=== PATIENT | female | born 1965 | race Caucasian/White ===

== ENCOUNTER 2016-09-07 16:30 | Emergency (ER) | payer MEDICARE, MEDICAID ==
[2016-09-07] MEDS ORDERED: Albuterol 2.5 MG/3 ML NEB.SOL* (0.083%) INH ONE (16:58)
[2016-09-07] MEDS ORDERED: Ipratropium 0.5MG/2.5ML NEB* 0.5 MG/2.5 ML NEB.SOLN INH ONE (16:58)
[2016-09-07] MEDS ORDERED: predniSONE TAB* 20 MG PO ONE (16:59)
--- NOTE | 2016-09-07 17:14 | RAD ---
INDICATION: Obstructive lung disease. Tobacco use. Three-day shortness of breath. Upper chest pain. COMPARISON: May 13, 2013 TECHNIQUE: Dual energy PA and routine lateral views of the chest were obtained. REPORT: Elevated lung volumes and both diffuse mild prominence of the interstitial markings and patchy rarefaction of the mid to upper lung zone interstitial markings. No focal pulmonary lesion, compelling alveolar consolidation, pleural effusion, pneumothorax. The heart, pulmonary vasculature, and mediastinal contours are unremarkable. Gallbladder fossa level surgical clips. No thoracic fractures evident. IMPRESSION: Stigmata of obstructive lung disease. No acute pulmonary or cardiac process evident.
[2016-09-07 18:11] VITALS: BP 128/88
--- NOTE | 2016-09-07 18:23 | UC ---
Respiratory Complaint HPI - HPI Summary HPI Summary: COUGH X 5 DAY , CHEST CONGESTION, NO FEVER, NO CHILLS, COUGHING GO WORSE ABOUT 3 HRS AGO AND STARTED TO FEEL VERY SOB , WAS HAVING A HARD TIME CATCHING HER BREATH AND WAS HYPERVENTILATING - History of Current Complaint Chief Complaint: UCRespiratory Stated Complaint: DIFFICULTY BREATHING Time Seen by Provider: 09/07/16 16:32 Hx Obtained From: Patient Hx Last Menstrual Period: 1998 Onset/Duration: Gradual Onset, Lasting Days - 5, Still Present, Worse Since - 3 HRS AGO Severity Initially: Moderate Severity Currently: Severe Pain Intensity: 0 Pain Scale Used: 0-10 Numeric Character: Cough: Nonproductive Aggravating Factors: Exertion, Deep Breaths Alleviating Factors: Bronchodilator Associated Signs And Symptoms: Positive: Dyspnea, Wheezing, URI. Negative: Fever, Chills, Pleuritic Chest Pain, Dizziness, Calf Pain, Calf Swelling - Allergies/Home Medications Allergies/Adverse Reactions: Allergies Allergy/AdvReac Type Severity Reaction Status Date / Time No Known Allergies Allergy Verified 09/07/16 16:35 Home Medications: Home Medications Esomeprazole Magnesium [Nexium] 40 mg PO DAILY 09/07/16 [History Confirmed 09/07] Fenofibrate 120 mg PO DAILY 09/07/16 [History Confirmed 09/07/16] Folic Acid TAB* [Folvite TAB*] 1 mg PO DAILY 09/07/16 [History Confirmed ] LevoCETirizine TAB (NF) [Xyzal TAB (NF)] 5 mg PO DAILY 09/07/16 [History Confirmed 09/07/16] Metoprolol Tartrate TAB* [Lopressor TAB*] 25 mg PO DAILY 09/07/16 [History Confirmed 09/07/16] Mometasone NASAL (NF) [Nasonex (NF)] 1 spray .SEE ORDER DAILY 09/07/16 [History Confirmed 09/07/16] Oxybutynin XL TAB* [Ditropan Xl TAB*] 10 mg PO DAILY 09/07/16 [History Confirmed 09/07/16] Ramipril CAP* [Altace CAP*] 2.5 mg PO DAILY 09/07/16 [History Confirmed 09/07/16 ] Ropinirole Hydrochloride [Ropinirole HCl] 0.25 mg PO BEDTIME 09/07/16 [History Confirmed 09/07/16] SUMAtriptan TAB* [Imitrex TAB*] 25 mg PO SEE INSTRUCTIONS 09/07/16 [History Confirmed 09/07/16] Simvastatin [Zocor 40 MG (NF)] 40 mg PO QPM 09/07/16 [History Confirmed 09/07/16 ] Trospium (NF) [Sanctura (NF)] 60 mg PO DAILY 09/07/16 [History Confirmed ] Venlafaxine EXT RELEASE CAP* [Effexor Xr CAP*] 75 mg PO DAILY 09/07/16 [History Confirmed 09/07/16] PMH/Surg Hx/FS Hx/Imm Hx Endocrine History Of: Reports: Diabetes - Type II (No meds) Cardiovascular History Of: Reports: Hypertension - ON MEDS Denies: Cardiac Disorders Respiratory History Of: Reports: Asthma - Surgical History Surgical History: Yes Surgery Procedure, Year, and Place: B/L foot surgery. HYSTERECTOMY. WRIST AND HAND SURGERY AFTER A FALL on right - Family History Known Family History: Positive: Hypertension, Diabetes - Social History Alcohol Use: None Substance Use Type: None Smoking Status (MU): Heavy Every Day Tobacco Smoker Amount Used/How Often: 1 ppd Length of Time of Smoking/Using Tobacco: 15 years Review of Systems Constitutional: Negative Skin: Negative ENT: Negative Respiratory: Shortness Of Breath, Cough Cardiovascular: Negative Gastrointestinal: Negative All Other Systems Reviewed And Are Negative: Yes Physical Exam Triage Information Reviewed: Yes Appearance: Well-Appearing, No Pain Distress, Well-Nourished Vital Signs: Initial Vital Signs Temp 97.8 F 09/07/16 16:31 Pulse 111 09/07/16 16:31 Resp 32 09/07/16 16:31 BP 133/78 09/07/16 16:31 Pulse Ox 91 09/07/16 16:31 Vital Signs Reviewed: Yes Eyes: Positive: Conjunctiva Clear ENT: Positive: Normal ENT inspection, Hearing grossly normal, Pharynx normal Neck: Positive: Supple, Nontender, No Lymphadenopathy Respiratory: Positive: Chest non-tender, No respiratory distress, Respiratory distress, Decreased breath sounds. Negative: Wheezing Cardiovascular: Positive: Tachycardia Abdominal Exam: Normal UC Diagnostic Evaluation - Laboratory O2 Sat by Pulse Oximetry: 90 Respiratory Course/Dx - Course Course Of Treatment: PT. HAD SIGNIFICANT IMPROVEMENT AFTER NEB TX. CONT. TO HAVE LOW PO2 SAT OF 89 %. WILL CONT. WITH ALBUTEROL EVERY 4 HRS, PREDNISONE. PT. WILL GO TO ED IF SX OF SOB RETURNED. FOLLOW UP IN 3 DAYS - Differential Dx/Diagnosis Provider Diagnoses: BRONCHITIS. COPD EXACERBATION Discharge - Discharge Plan Condition: Stable Disposition: HOME Prescriptions: predniSONE TAB* [Deltasone TAB*] 40 mg PO DAILY #14 tab Patient Education Materials: Acute Bronchitis (ED), COPD (Chronic Obstructive Pulmonary Disease) (ED) Referrals: Hanna Warren MD [Primary Care Provider] - 3 Days Additional Instructions: PREDNISONE 40 MG DAILY X 7 DAYS CONT. WITH ALBUTEROL EVERY 4 HRS WILL CHECK DDIMER TO R/O PE, GO TO ED IF GETTING SOB AGAIN
== END 2016-09-07 18:10 | disposition home or self-care (01) ==
LOC: UCCORT 16:30
DX: J40 Bronchitis, not specified as acute or chronic (principal); J44.1 Chronic obstructive pulmonary disease with (acute) exacerbation; J20.9 Acute bronchitis, unspecified; J44.0 Chronic obstructive pulmonary disease with (acute) lower respiratory infection; E11.9 Type 2 diabetes mellitus without complications; I10 Essential (primary) hypertension; Z90.710 Acquired absence of both cervix and uterus; F17.210 Nicotine dependence, cigarettes, uncomplicated
CPT/HCPCS: 36415; 71020; 85379; 93005; 99213; G0463; J7512; J7644

== ENCOUNTER 2017-10-05 12:43 | Emergency (ER) | payer MEDICARE, MEDICAID ==
--- OUTSIDE RECORDS SUMMARY | 2017-10-05 13:05 | XMS REPORT ---
:1965 External Reference #:[id number] Author Organization [facility] Address [address], [address] [place] [address] Phone [phone] Care Team Providers Name Role Phone Hanna Warren MD Care Team Information Diesel Mechanic Helper Unavailable Hanna Warren MD Primary Care Physician Unavailable Payers Type Date Identification Numbers Payment Provider Subscriber Medicare Primary Effective: Policy Number: Medicare Jaylin Dixon 2005 [id number] Group Name: Medicare [address] PayID: [id number] [place] [address] Medicaid Policy Number: [id number] Medicaid Jaylin Dixon Group Name: 2 1 [address] PayID: [id number] [place] [address] Problems Date Description Provider Status Onset: 12/25/2010 Verruca vulgaris Harry Edward M.D. Active Note: left index finger, left forehead Onset: 12/25/2010 Corns and callus Harry Edward M.D. Active Note: plantar side Onset: 04/27/2015 Dermatophytosis Hanna Warren MD Active Onset: 04/27/2015 Obstructive sleep apnea syndrome Hanna Warren MD Active Onset: 04/27/2015 Type 2 diabetes mellitus Hanna Warren MD Active Onset: 04/27/2015 Hyperlipidemia Hanna Warren MD Active Onset: 04/27/2015 Essential hypertension Hanna Warren MD Active Onset: 04/27/2015 Palpitations Hanna Warren MD Active Onset: 04/27/2015 Inflammatory spondylopathy Hanna Warren MD Active Onset: 05/10/2015 Exacerbation of mild persistent asthma Hanna Warren MD Active Onset: 05/10/2015 Otitis media Hanna Warren MD Active Onset: 05/10/2015 Tobacco user Hanna Warren MD Active Onset: 06/20/2015 Benign essential hypertension Active Onset: 02/29/2016 Anxiety state Hanna Warren MD Active Onset: 02/29/2016 Mixed urinary incontinence Hanna Warren MD Active Onset: 10/09/2016 Knee pain Scout Dumas M.D. Active Onset: 10/09/2016 Knee joint effusion Scout Dumas M.D. Active Onset: 11/14/2016 Derangement of posterior horn of lateral Scout Dumas M.D. Active meniscus Onset: 11/14/2016 Loose body in knee Scout Dumas M.D. Active Onset: 11/14/2016 Chondromalacia Scout Dumas M.D. Active Onset: 06/07/2017 Acute sinusitis Hanna Warren MD Active Onset: 06/07/2017 Acute upper respiratory infection, Hanna Warren MD Active unspecified Onset: 08/27/2017 Localized superficial swelling of skin Hanna Warren MD Active Onset: 08/27/2017 Allergic rhinitis Hanna Warren MD Active Family History Date Family Member(s) Problem(s) Comments General Non Contributory Father Unknown hisotry Mother Uterine Cancer Mother Hypertension First Brother Cancer Grandfather Heart Disease Grandfather Cancer Grandmother cataracts Maternal Grandfather Arthritis Maternal Grandfather Cancer Maternal Grandfather Heart Troubles Social History Type Date Description Comments Education Highest level completed, 11th grade Marital Status Single Lives With Alone Diet Patient follows no dietary restrictions Pets 1 cat Occupation Disabled due to wrist injury ADL's/IADL's Independent with all ADL's Cigarette Use Current Cigarette Smoker 1 Pack Daily Cigarette Use Pack Years - 20 ETOH Use Denies alcohol use Smoking Patient is a current smoker, smokes every day Smoking Heavy tobacco smoker (more than 10 cigarettes/day) Daily Caffeine Consumes on average 4 cups of regular coffee per day Currently Active Patient is currently not sexually active Age [address]st [place] 16 Years Old # Partners in a Lifetime over 5 STD's No STD History Allergies, Adverse Reactions, Alerts Date Description Reaction Status Severity Comments 11/28/2010 NKDA active Medications Medication Date Status Form Strength Qnty SIG Indications Ordering Provider Prednisone 09/11 Active Tablets 20mg 10tab 2 tabs (40 Hanna s mg) daily Briana, for 5 days MD for shortness of breath/whee zing Amoxicillin/Clav 09/11 Active Tablets 875-125mg 20tab 1 tab by Hanna ulanate s mouth Briana, Potassium q12hrs for MD 10 days Fenofibrate 07/15 Active Capsules 134mg 90cap 1 by mouth Hanna Micronized s every day Briana, Nexium 09/[address] 40mg 180ca 1 tab by K21.9 Hanna ps mouth twice Briana, a day Proair HFA 06/01 Active Aerosol 108(90Bas 18uni 1-2 Hanna e) ts inhalations Briana, mcg/Act every 4- 6 MD hours as needed for shortness of breath, Oxybutynin 02/28 Active Tablets ER 5mg 180ta 2 tab by Hanna Chloride ER 24HR bs mouth every Briana, day Venlafaxine HCL 11/27 Active Tablets 75mg 180ta 1 by mouth Hanna bs twice a day Briana, Sumatriptan 07/31 Active Tablets 50mg 30tab 1 tab by Hanna Succinate s mouth as Briana, needed for MD migraines Albuterol 05/10 Active Nebulizer (2.5mg/3M 180ml nebulized Hanna Sulfate ) 0.083% every 6 Briana, hours as MD needed Nebulizer 05/10 Active Kit 1unit 1 J45.31 Micky Parks Kit/Tubing/Mouth s inhalation Luis BARROW piece every 6 hours as needed Nebulizer 05/10 Active Device One as directed Micky Parks /2015 Luis BARROW Metoclopramide Active Tablets 10mg 270ta 1 by mouth Hanna HCL bs three times Briana, a day Sulfasalazine Active Tablets DR 500mg 240ta 2 tabs by Hanna / bs mouth four Briana, times a day Humira Pen Active PNKT 40mg/0.8M Inject 1 Unknown / L Pen Into The Skin Every 14 Days Celecoxib Active Capsules 50mg 1 cap by Unknown /0000 mouth twice a day Folic Acid Active Tablets 1mg 90tab take 1 Hanna /0000 s tablet by Briana, mouth once MD daily Ramipril Active Capsules 2.5mg 90cap take 1 Hanna s capsule by Briana, mouth once MD daily Trospium Active Caps ER 60mg 90cap 1 by mouth Hanna Chloride ER /0000 24HR s every day MD Briana Metoprolol Active Tablets ER 25mg 30tab take 1 Hanna Succinate ER /0000 24HR s tablet by Briana, mouth once MD daily Simvastatin Active Tablets 40mg 30tab 1 tab by Hanna s mouth every Briana, day Ropinirole HCL Active Tablets 0.25mg 90tab take 1 Hanna s tablet by Briana, mouth 2 MD hours before bedtime Nasonex Active Suspension 50mcg/Act 17gm 1 Hanna intranasal Briana, every day Levocetirizine Active Tablets 5mg 90tab take 1 Hanna Dihydrochloride / s tablet by Briana, mouth once MD daily Amoxicillin 08/27 Hx Capsules 500mg 14cap 1 tab by Hanna s mouth twice Briana, - a day x 7 Azithromycin 06/07 Hx Tablets 250mg 6tabs take 2 tabs J06.9 Hanna on day 1 Briana, - and take 08/27 one tab days 2-5 Prednisone 06/07 Hx Tablets 20mg 10tab 2 tabs (40 J06.9 Hanna s mg) daily Briana, - for 5 days 08/27 for shortness of breath/whee zing Hydrocodone-Acet 11/02 Hx Tablets 5-325mg 60tab 1-2 by Scout aminophen s mouth every [place], - 4-6 hours M.D. 11/14 as needed for pain Diflucan 09/25 Hx Tablets 150mg 1tabs 1 tab by Hanna mouth Briana, - single dose 10/21 for yeast infection Nicotine Step 3 09/19 Hx Patches 7mg/24HR 14uni one patch a Hanna 24HR ts day for 14 Briana, - days after 01/23 step Nicotine Step 2 09/19 Hx Patches 14mg/24HR 14uni 1 patch a Hanna 24HR ts day for 14 Briana, - days then 01/23 go to step 3 Nicotine Step 1 09/19 Hx Patches 21mg/24HR 14uni one patch a Hanna 24HR ts day for 14 Briana, - days then 01/23 step Lansoprazole 07/[address] 30mg 30cap 1 by mouth Hanna s every day Briana, - 09/19 Nystatin-Triamci 06/13 Hx Ointment 800071-3. 15gm apply to B35.9 Hanna nolone 1Unit/GM- affected Briana, - % area three 08/27 times a day /2017 Fenofibrate 06/13 Hx Capsules 130mg 90cap take 1 Hanna Micronized s capsule by Briana, - mouth once 07/15 daily Esomeprazole 02/[address] 40mg 60cap 1 by mouth Hanna Magnesium s two times a Briana, - day 07/09 Vitamin D-3 02/28 Hx Capsules 1000Unit 180ca 2 by mouth Hanna ps daily Briana, - 06/13 Cpap Nasal Mask 02/28 Hx 1unit needs to be G47.33 s fitted Briana, Cpap Tubing Long 02/28 Hx 1unit long tubing G47.33 s for cpap MD Briana Cpap Machine 02/28 Hx 1unit Needs cpap G47.33 Hanna s machine Briana, Venlafaxine HCL 11/27 Hx Caps ER 75mg 30cap 1 by mouth Hanna ER 24HR s bid Briana, - 11/27 Venlafaxine HCL 09/04 Hx Caps ER 75mg 30cap 1 by mouth Hanna ER 24HR s every day Briana, - 11/27 Econazole 08/11 Hx Cream 1% 30gm thin layer B35.9 Micky Parks Nitrate to face Luis BARROW rash twice a day Cephalexin 08/11 Hx Tablets 500mg 30tab 1 tab (or J20.9 Micky E. /2015 s cap) by Luis DO - mouth three 11/27 times a day Mucinex 08/11 Hx Tablets ER 600mg 30tab take two by J20.9 Micky Page. 12HR s mouth twice Luis DO a day for chest congestion/ cough Ergocalciferol 07/31 Hx Capsules [id number] 12cap 1 tab by Hanna s mouth every Briana, - week for 12 02/28 weeks stop and take maintenance over the counter Venlafaxine HCL 05/10 Hx Tablets 75mg 60tab 1 by mouth Hanna s twice a day Briana, - 09/04 Amoxicillin 05/10 Hx Capsules 500mg 14cap 1 tab by Hanna s mouth twice Briana, - a day x 7 Metformin HCL 04/27 Hx Tablets 500mg 30tab 1 by mouth s everyday Briana, - 06/13 Nystatin-Triamci 04/27 Hx Ointment 701015-7. 15gm apply to B35.9 Hanna nolo /2014 1Unit/GM- affected Briana, - % area three 04/27 times a day /2014 Nystatin 04/27 Hx Powder [id number] 15gm apply to B35.9 Hanna t/GM affected Briana, - area 04/27 Nystatin 04/27 Hx Ointment [id number] 15gm apply to B35.9 Hanna t/GM affected Briana, area Cpap Nasal Mask 04/27 Hx 1unit needs to be G47.33 s fitted. Her Briana, current MD mask is not fitting well. Cpap Tubing Long 04/27 Hx 1unit long tubing G47.33 s for cpap Briana, Venlafaxine HCL 04/27 Hx Caps ER 75mg 1 by mouth 24HR every day Briana, - 05/10 Meloxicam 04/27 Hx Tablets 15mg 30tab 1 tab by M15.0 s mouth daily Briana, - as needed 11/27 for pain Nystop 04/27 Hx Powder [id number] 45gm apply to t/GM affected Briana, area sparingly two-three times a day Effexor XR Hx Caps ER 75mg 1 po qd Unknown /0000 24HR - 04/[address] 40mg 60cap 1 by mouth K21.9 Hanna /0000 s twice a day Zhao Warren MD 02/28 Imitrex Hx Tablets 50mg 20tab 1 tab po Unknown /0000 s prn for - headache. 04/26 dose x 1 after 2 hr if recurs. Topamax Hx Tablets 25mg 1 po qd Unknown / Loratadine Hx Tablets 10mg 1 po qd Unknown / - 04/26 Klonopin Hx Tablets 0.5mg 1 po qid - 04/26 Oxycodone/Acetam Hx Tablets 5-325mg 30tab 1 tab by Unknown inophen /0000 s mouth every - day as 04/26 Lidocaine Hx Cream 3-0.5% affected Unknown HCL/Hydrocortiso /0000 area ne Acetate - bid-tid prn 04/26 Proair HFA Hx Aerosol 108(90Bas 1-2 Unknown /0000 e) inhalations - mcg/Act every 4 02/ hours needed Welchol Hx Tablets 625mg 2 po qday Unknown /0000 with food - 06/13 Oxybutynin Hx Tablets ER 5mg 90tab 1 by mouth Hanna Chloride ER /0000 24HR s every day Zhao Warren MD 02/28 Venlafaxine HCL Hx Tablets 75mg 30tab 1 by mouth Hanna /0000 s every day Zhao Warren MD 04/27 Vitamin D2 Hx Tablets 2000Unit 90tab 1 by mouth Hanna /0000 s every week Zhao Warren MD 07/31 Prednisone 00/00 Hx Tablets 20mg Zarrini, Zhao De La O MD 09/19 Levofloxacin 00/ Hx Tablets 750mg 1 by mouth Unknown /0000 every day - for ten day 10/21 Prednisone 00/00 Hx Tablets 5mg Patterson, /0000 Dixon - 10/21 SM Nicotine 0000 Hx Patches 14mg/24HR Unknown /0000 24HR - 10/21 Prednisone 00/00 Hx Tablets 20mg Zarrini, /0000 Zhao De La O MD 10/09 Metformin HCL 00 Hx Tablets 500mg take 1 Unknown /0000 tablet by - mouth once 10/09 Welchol 00/00 Hx Tablets 625mg Unknown /0000 - 10/09 Meloxicam 00/00 Hx Tablets 15mg Unknown /0000 Gavilyte-N With 00 Hx Solution 420gm take for 1 Unknown Flavor Pack /0000 Rec Day as - Directed 10/09 Diclofenac 00/00 Hx Tablets 50mg Patterson, Potassium /0000 Dixon Churchill MD 10/21 Vitamin B 0000 Hx Tablets 1 by mouth Unknown Complex /0000 every day Immunizations CPT Code Status Date Vaccine Lot # [id number] Given 01/11/2017 Pneumococcal Conjugate Vaccine 13 Valent For [id number] Intramuscular Use 93681 Given 01/11/2017 Influenza Virus Vaccine Quadrivalent Iiv4 Split [id number] Preser Free Id Q2038 Given 02/29/2016 Influenza Vaccine (Fluzone) Age 3 And Older 94830 Given 11/28/2015 Pneumovax Injection [id number] 23194 Given 11/28/2015 Td Preservative Free For Use In Individuals 7 Yrs [id number] Or Older Q2038 Given 02/02/2015 Influenza Vaccine (Fluzone) Age 3 And Older Q2038 Given 01/27/2015 Influenza Vaccine (Fluzone) Age 3 And Older 20718 Given 01/27/2014 flu vaccination 70744 Given 01/11/2013 flu vaccination 17749 Given 01/15/2012 flu vaccination Vital Signs Date Vital Result Comment 09/11/2017 BP Systolic Sitting Right Arm 108 mmHg BP Diastolic Sitting Right Arm 73 mmHg Body Temperature 97.0 F Heart Rate 76 /min Height 63 inches 5'3" Weight 192.00 lb BMI (Body Mass Index) 34.0 kg/m2 BSA (Body Surface Area) 1.90 m2 [place] body weight in kilograms 52 O2 % BldC Oximetry 93 % 08/27/2017 BP Systolic Sitting Left Arm 141 mmHg BP Diastolic Sitting Left Arm 89 mmHg Body Temperature 97.9 F Heart Rate 67 /min Respiratory Rate 18 /min Height 63 inches 5'3" Weight 196.00 lb BMI (Body Mass Index) 34.7 kg/m2 BSA (Body Surface Area) 1.92 m2 [place] body weight in kilograms 52 O2 % BldC Oximetry 97 % Ra 06/07/2017 BP Systolic Sitting Right Arm 131 mmHg BP Diastolic Sitting Right Arm 86 mmHg Body Temperature 98.1 F Heart Rate 95 /min Height 63 inches 5'3" Weight 187.00 lb BMI (Body Mass Index) 33.1 kg/m2 BSA (Body Surface Area) 1.88 m2 [place] body weight in kilograms 52 O2 % BldC Oximetry 94 % 01/23/2017 BP Systolic Sitting Left Arm 140 mmHg BP Diastolic Sitting Left Arm 86 mmHg Height 63 inches 5'3" Weight 196.38 lb BMI (Body Mass Index) 34.8 kg/m2 BSA (Body Surface Area) 1.92 m2 [place] body weight in kilograms 52 01/11/2017 BP Systolic Sitting Right Arm 133 mmHg BP Diastolic Sitting Right Arm 83 mmHg Heart Rate 54 /min Respiratory Rate 20 /min Weight 191.25 lb 12/27/2016 BP Systolic 140 mmHg BP Diastolic 91 mmHg Heart Rate 73 /min 11/14/2016 BP Systolic 117 mmHg BP Diastolic 77 mmHg Heart Rate 80 /min Height 66 inches 5'6" Weight 192.00 lb BMI (Body Mass Index) 31.0 kg/m2 BSA (Body Surface Area) 1.97 m2 [place] body weight in kilograms 59 10/22/2016 BP Systolic Sitting Left Arm 117 mmHg BP Diastolic Sitting Left Arm 78 mmHg Heart Rate 71 /min Height 66 inches 5'6" Weight 194.00 lb BMI (Body Mass Index) 31.3 kg/m2 BSA (Body Surface Area) 1.97 m2 [place] body weight in kilograms 59 10/09/2016 BP Systolic Sitting Left Arm 119 mmHg BP Diastolic Sitting Left Arm 81 mmHg Heart Rate 71 /min Height 65 inches 5'5" Weight 192.00 lb BMI (Body Mass Index) 31.9 kg/m2 BSA (Body Surface Area) 1.94 m2 [place] body weight in kilograms 57 09/19/2016 BP Systolic 105 mmHg BP Diastolic 79 mmHg Body Temperature 97.5 F Heart Rate 75 /min Respiratory Rate 20 /min Weight 190.00 lb O2 % BldC Oximetry 95 % 09/10/2016 O2 % BldC Oximetry 86 % 09/10/2016 BP Systolic 116 mmHg BP Diastolic 79 mmHg Body Temperature 97.1 F Heart Rate 74 /min Height 64 inches 5'4" Weight 118.00 lb BMI (Body Mass Index) 20.3 kg/m2 BSA (Body Surface Area) 1.56 m2 [place] body weight in kilograms 54 O2 % BldC Oximetry 94 % 06/21/2016 BP Systolic 104 mmHg BP Diastolic 78 mmHg Height 64 inches 5'4" Weight 187.25 lb BMI (Body Mass Index) 32.1 kg/m2 BSA (Body Surface Area) 1.90 m2 06/13/2016 BP Systolic Sitting Right Arm 124 mmHg BP Diastolic Sitting Right Arm 82 mmHg Heart Rate 90 /min Height 64 inches 5'4" Weight 181.12 lb BMI (Body Mass Index) 31.1 kg/m2 BSA (Body Surface Area) 1.88 m2 O2 % BldC Oximetry 96 % 02/29/2016 BP Systolic 120 mmHg BP Diastolic 78 mmHg Body Temperature 98.7 F Heart Rate 70 /min Respiratory Rate 16 /min Height 64 inches 5'4" Weight 190.00 lb BMI (Body Mass Index) 32.6 kg/m2 BSA (Body Surface Area) 1.91 m2 O2 % BldC Oximetry 97 % 11/28/2015 BP Systolic 126 mmHg BP Diastolic 82 mmHg Heart Rate 92 /min Height 64 inches 5'4" Weight 192.00 lb BMI (Body Mass Index) 33.0 kg/m2 BSA (Body Surface Area) 1.92 m2 08/12/2015 BP Systolic 128 mmHg BP Diastolic 78 mmHg Body Temperature 97.3 F Heart Rate 79 /min Respiratory Rate 16 /min Height 64 inches 5'4" Weight 193.00 lb BMI (Body Mass Index) 33.1 kg/m2 BSA (Body Surface Area) 1.93 m2 O2 % BldC Oximetry 95 % 08/01/2015 BP Systolic 137 mmHg BP Diastolic 83 mmHg Heart Rate 80 /min Height 64 inches 5'4" Weight 193.00 lb BMI (Body Mass Index) 33.1 kg/m2 BSA (Body Surface Area) 1.93 m2 O2 % BldC Oximetry 97 % 06/20/2015 BP Systolic Sitting Right Arm 120 mmHg BP Diastolic Sitting Right Arm 82 mmHg Heart Rate 58 /min Respiratory Rate 16 /min Height 64 inches 5'4" Weight 190.00 lb BMI (Body Mass Index) 32.6 kg/m2 BSA (Body Surface Area) 1.91 m2 05/10/2015 BP Systolic Sitting Left Arm 110 mmHg BP Diastolic Sitting Left Arm 80 mmHg Heart Rate 80 /min Respiratory Rate 16 /min Height 64 inches 5'4" Weight 187.12 lb BMI (Body Mass Index) 32.1 kg/m2 BSA (Body Surface Area) 1.90 m2 O2 % BldC Oximetry 95 % Ra 04/27/2015 BP Systolic 98 mmHg BP Diastolic 64 mmHg Height 64 inches 5'4" Weight 184.00 lb BMI (Body Mass Index) 31.6 kg/m2 BSA (Body Surface Area) 1.89 m2 02/08/2011 BP Systolic Sitting Left Arm 115 mmHg BP Diastolic Sitting Left Arm 75 mmHg Body Temperature 98.4 F Heart Rate 63 /min Height 64 inches 5'4" Weight 213.00 lb BMI (Body Mass Index) 36.6 kg/m2 12/25/2010 BP Systolic Sitting Left Arm 117 mmHg BP Diastolic Sitting Left Arm 79 mmHg Heart Rate 69 /min Height 64 inches 5'4" Weight 206.25 lb BMI (Body Mass Index) 35.4 kg/m2 Results Test Date Test Result H/L Range Note Microalb/Creat Ratio,Random 01/11/2017 Microalbumin,Urine 6.2 mg/L < 20.0 1 Microalbumin/Creatinine Ratio 2.7 ug/mgCrt < 30.0 1 Urine Creatinine Conc 227 mg/dL 1 Comprehensive Metabolic Panel 01/04/2017 Glucose 145 mg/dL High 74-106 2 BUN 9 mg/dL 7-18 2 Creatinine 0.9 mg/dL 0.6-1.3 2 Glom Filtration Rate, Estimate >60 mL/min >60 2 If >60 mL/min >60 2, 3 BUN/Creat 10.0 ratio 2 Sodium 144 mmol/L 136-145 2 Potassium 4.2 mmol/L 3.5-5.1 2 Chloride 113 mmol/L High 98-107 2 Carbon Dioxide 25 mmol/L 21-32 2 Anion Gap 6 mEq/L Low 8-16 2 Calcium 8.5 mg/dL 8.5-10.1 2 Total Protein 6.7 g/dL 6.4-8.2 2 Albumin 3.7 g/dL 3.4-5.0 2 Globulin 3.0 g/dL 1.9-4.3 2 Alb/Glob 1.2 ratio 2 Bilirubin,Total 0.2 mg/dL 0.2-1.0 2 Sgot/Ast 17 U/L 15-37 2 SGPT/Alt 21 U/L 12-78 2 Alkaline Phosphatase 69 U/L 45-117 2 LDL Cholesterol Profile 01/04/2017 Cholesterol 167 mg/dL <200 2, 4 Triglycerides 175 mg/dL High <150 2, 5 HDL Cholesterol 49 mg/dL >40 2, 6 LDL-Cholesterol 83 mg/dL < 100 2, 7 Glycohemoglobin A1c 01/04/2017 Glycohemoglobin (A1c) 6.1 % 4.2-6.3 2, 8 eAG 128 mg/dL 2 CBS W/Automated Diff 01/04/2017 White Blood Count 7.3 K/uL 3.1-10.7 2 Red Blood Count 4.17 M/uL 3.90-5.40 2 Hemoglobin 13.0 gm/dL 11.6-15.8 2 Hematocrit 39.2 % 36.0-46.1 2 Mean Cell Volume 94.0 fl 80.9-99.0 2 Mean Corpuscular HGB 31.2 pg 25.9-32.7 2 Mean Corpuscular HGB Conc 33.2 g/dL 30.8-34.3 2 Platelet Count 280 K/uL 150-400 2 Red Cell Distri Width SD 49.1 fl High 3-47 2 Red Cell Distri Width %CV 14.8 % High 11.7-14.4 2 Mean Platelet Volume 10.0 fL 8.9-12.4 2 Neut% 53.0 % 40.4-72.8 2 Lymph % 38.4 % 20.0-42.0 2 [place] % 7.8 % 4.3-13.2 2 Eo% 0.0 % 0.0-6.6 2 Bas% 0.8 % 0.0-1.1 2 Neut# 3.89 K/uL 1.8-7.0 2 Lymph # 2.82 K/uL 1.0-4.0 2 [place] # 0.57 K/uL 0.3-0.9 2 Eos # 0.00 K/uL 0.0-0.5 2 Baso # 0.06 K/uL 0.0-0.1 2 Basic Metabolic Panel 09/19/2016 Glucose 106 mg/dL 74-106 9 BUN 12 mg/dL 7-18 9 Creatinine 0.9 mg/dL 0.6-1.3 9 Glom Filtration Rate, Estimate >60 mL/min >60 9 If >60 mL/min >60 9, 10 BUN/Creat 13.3 ratio 9 Sodium 144 mmol/L 136-145 9 Potassium 4.3 mmol/L 3.5-5.1 9 Chloride 112 mmol/L High 98-107 9 Carbon Dioxide 25 mmol/L 21-32 9 Anion Gap 7 mEq/L Low 8-16 9 Calcium 8.5 mg/dL 8.5-10.1 9 Basic Metabolic Panel 09/11/2016 Glucose 203 mg/dL High 74-106 11 BUN 10 mg/dL 7-18 11 Creatinine 0.9 mg/dL 0.6-1.3 11 Glom Filtration Rate, Estimate >60 mL/min >60 11 If >60 mL/min >60 11, 12 BUN/Creat 11.1 ratio 11 Sodium 143 mmol/L 136-145 11 Potassium 4.3 mmol/L 3.5-5.1 11 Chloride 109 mmol/L High 98-107 11 Carbon Dioxide 26 mmol/L 21-32 11 Anion Gap 8 mEq/L 8-16 11 Calcium 8.8 mg/dL 8.5-10.1 11 Anion Gap SerPl-sCnc 09/11/2016 Anion Gap SerPl-sCnc 8 8-16 BUN SerPl-mCnc 09/11/2016 BUN SerPl-mCnc 10 7-18 BUN/Creat SerPl 09/11/2016 BUN/Creat SerPl 11.1 Co2 SerPl-sCnc 09/11/2016 Co2 SerPl-sCnc 26 21-32 Calcium SerPl-mCnc 09/11/2016 Calcium SerPl-mCnc 8.8 8.5-10.1 Chloride SerPl-sCnc 09/11/2016 Chloride SerPl-sCnc 109 High 98-107 Creat SerPl-mCnc 09/11/2016 Creat SerPl-mCnc 0.9 0.6-1.3 Glucose [Mass/volume] 09/11/2016 Glucose [Mass/volume] 203 High 74-106 in Serum or Plasma in Serum or Plasma Potassium SerPl-sCnc 09/11/2016 Potassium SerPl-sCnc 4.3 3.5-5.1 Sodium SerPl-sCnc 09/11/2016 Sodium SerPl-sCnc 143 136-145 Capillary blood 09/11/2016 Capillary blood 171 High 70-110 glucose measurement glucose measurement by glucometer by glucometer (mass/volume) Laboratory test 09/11/2016 Legionella Negative Negative 13, 14 finding Antigen,Urine Laboratory test 09/11/2016 Vancomycin,Trough 3.7 ug/mL Low 15.0-20.0 13 finding CBS W/Automated Diff 09/11/2016 White Blood Count 6.7 K/uL 3.1-10.7 15 Red Blood Count 3.89 M/uL Low 3.90-5.40 15 Hemoglobin 11.8 gm/dL 11.6-15.8 15 Hematocrit 36.6 % 36.0-46.1 15 Mean Cell Volume 94.1 fl 80.9-99.0 15 Mean Corpuscular HGB 30.3 pg 25.9-32.7 15 Mean Corpuscular HGB Conc 32.2 g/dL 30.8-34.3 15 Platelet Count 262 K/uL 150-400 15 Red Cell Distri Width SD 45.7 fl 3-47 15 Red Cell Distri Width %CV 13.6 % 11.7-14.4 15 Mean Platelet Volume 9.6 fL 8.9-12.4 15 Neut% 78.3 % High 40.4-72.8 15 Lymph % 17.4 % Low 20.0-42.0 15 [place] % 4.3 % 4.3-13.2 15 Eo% 0.0 % 0.0-6.6 15 Bas% 0.0 % 0.0-1.1 15 Neut# 5.26 K/uL 1.8-7.0 15 Lymph # 1.17 K/uL 1.0-4.0 15 [place] # 0.29 K/uL Low 0.3-0.9 15 Eos # 0.00 K/uL 0.0-0.5 15 Baso # 0.00 K/uL 0.0-0.1 15 Glycohemoglobin A1c 09/11/2016 Glycohemoglobin (A1c) 6.5 % High 4.2-6.3 15, 16 eAG 140 mg/dL 15 Basophils 09/11/2016 Basophils 0.00 0.0-0.1 [#/volume] in [#/volume] in Blood by Automated Blood by Automated count count Basophils/leuk NFr 09/11/2016 Basophils/leuk NFr 0.0 0.0-1.1 Bld Auto Bld Auto Blood glucose mean 09/11/2016 Blood glucose mean 140 value measurement value measurement estimated fro estimated from glycated hemoglobin (mass/volume) Eosinophil # Bld 09/11/2016 Eosinophil # Bld 0.00 0.0-0.5 Auto Auto Eosinophil/leuk 09/11/2016 Eosinophil/leuk 0.0 0.0-6.6 NFr Bld Auto NFr Bld Auto Hct VFr Bld Auto 09/11/2016 Hct VFr Bld Auto 36.6 36.0-46.1 Hgb A1c MFr Bld 09/11/2016 Hgb A1c MFr Bld 6.5 High 4.2-6.3 Hgb Bld-mCnc 09/11/2016 Hgb Bld-mCnc 11.8 11.6-15.8 Lymphocytes 09/11/2016 Lymphocytes 1.17 1.0-4.0 [#/volume] in [#/volume] in Blood by Automated Blood by Automated count count Lymphocytes/leuk 09/11/2016 Lymphocytes/leuk 17.4 Low 20.0-42.0 NFr Bld Auto NFr Bld Auto MCH RBC Qn Auto 09/11/2016 MCH RBC Qn Auto 30.3 25.9-32.7 MCHC RBC Auto-mCnc 09/11/2016 MCHC RBC Auto-mCnc 32.2 30.8-34.3 MCV RBC Auto 09/11/2016 MCV RBC Auto 94.1 80.9-99.0 Monocytes # Bld 09/11/2016 Monocytes # Bld 0.29 Low 0.3-0.9 Auto Auto Monocytes/leuk NFr 09/11/2016 Monocytes/leuk NFr 4.3 4.3-13.2 Bld Auto Bld Auto Neutrophils # Bld 09/11/2016 Neutrophils # Bld 5.26 1.8-7.0 Auto Auto Neutrophils/leuk 09/11/2016 Neutrophils/leuk 78.3 High 40.4-72.8 NFr Bld Auto NFr Bld Auto PMV Bld Auto 09/11/2016 PMV Bld Auto 9.6 8.9-12.4 Platelets 09/11/2016 Platelets 262 150-400 [#/volume] in [#/volume] in Blood by Automated Blood by Automated count count RBC # Bld Auto 09/11/2016 RBC # Bld Auto 3.89 Low 3.90-5.40 RDW RBC Auto 09/11/2016 RDW RBC Auto 45.7 3-47 RDW RBC Auto-Rto 09/11/2016 RDW RBC Auto-Rto 13.6 11.7-14.4 WBC # Bld Auto 09/11/2016 WBC # Bld Auto 6.7 3.1-10.7 Anaerobic blood 09/10/2016 Anaerobic blood No Growth culture culture Legionella Culture 09/10/2016 Legionella Culture Legionella Speci 17, 18 <SEE NOTE> Unloinc 09/10/2016 Unloinc . Serum or plasma 09/10/2016 Serum or plasma 85.0 <125 natriuretic natriuretic peptide B peptide B prohormone N prohormone N-terminal measurement (mass/volume) Bacteria Bld 09/10/2016 Bacteria Bld No Growth Aerobe Cult Aerobe Cult Blood Culture 09/10/2016 Blood Culture NO GROWTH: FINAL 17, 19 Aerobic <SEE NOTE> Blood Culture Anaerobic NO GROWTH: FINAL <SEE NOTE> 17, 20 Blood Culture 09/10/2016 Blood Culture Aerobic NO GROWTH: FINAL <SEE 17, 21 NOTE> Blood Culture Anaerobic NO GROWTH: FINAL <SEE NOTE> 17, 22 Aot Request 09/10/2016 Aot Request Test(s) added 23, 24 Tests to be added: BNP 23 * Miscellaneous 09/10/2016 * Miscellaneous Test(s) added studies (set) studies (set) Comprehensive 09/10/2016 Glucose 147 mg/dL High 74-106 23 Metabolic Panel BUN 10 mg/dL 7-18 23 Creatinine 0.9 mg/dL 0.6-1.3 23 Glom Filtration Rate, Estimate >60 mL/min >60 23 If >60 mL/min >60 23, 25 BUN/Creat 11.1 ratio 23 Sodium 140 mmol/L 136-145 23 Potassium 3.2 mmol/L Low 3.5-5.1 23 Chloride 107 mmol/L 98-107 23 Carbon Dioxide 23 mmol/L 21-32 23 Anion Gap 10 mEq/L 8-16 23 Calcium 8.8 mg/dL 8.5-10.1 23 Total Protein 7.5 g/dL 6.4-8.2 23 Albumin 3.7 g/dL 3.4-5.0 23 Globulin 3.8 g/dL 1.9-4.3 23 Alb/Glob 1.0 ratio 23 Bilirubin,Total 0.4 mg/dL 0.2-1.0 23 Sgot/Ast 11 U/L Low 15-37 23, 26 SGPT/Alt 16 U/L 12-78 23 Alkaline Phosphatase 72 U/L 45-117 23 Laboratory test finding 09/10/2016 CK 89 U/L 26-192 23, 27 Troponin-I < 0.015 ng/mL 23, 28 CBS W/Automated Diff 09/10/2016 White Blood Count 9.6 K/uL 3.1-10.7 23 Red Blood Count 4.05 M/uL 3.90-5.40 23 Hemoglobin 12.5 gm/dL 11.6-15.8 23 Hematocrit 38.0 % 36.0-46.1 23 Mean Cell Volume 93.8 fl 80.9-99.0 23 Mean Corpuscular HGB 30.9 pg 25.9-32.7 23 Mean Corpuscular HGB Conc 32.9 g/dL 30.8-34.3 23 Platelet Count 249 K/uL 150-400 23 Red Cell Distri Width SD 46.1 fl 3-47 23 Red Cell Distri Width %CV 13.9 % 11.7-14.4 23 Mean Platelet Volume 9.6 fL 8.9-12.4 23 Neut% 78.1 % High 40.4-72.8 23 Lymph % 17.3 % Low 20.0-42.0 23 [place] % 4.3 % 4.3-13.2 23 Eo% 0.0 % 0.0-6.6 23 Bas% 0.3 % 0.0-1.1 23 Neut# 7.52 K/uL High 1.8-7.0 23 Lymph # 1.67 K/uL 1.0-4.0 23 [place] # 0.41 K/uL 0.3-0.9 23 Eos # 0.00 K/uL 0.0-0.5 23 Baso # 0.03 K/uL 0.0-0.1 23 Slide Review 09/10/2016 Slide Review . 23, 29 Laboratory test 09/10/2016 NT-proBNP 85.0 <125 23, 30 finding pg/mL Alp SerPl-cCnc 09/10/2016 Alp SerPl-cCnc 72 45-117 Alt SerPl-cCnc 09/10/2016 Alt SerPl-cCnc 16 12-78 Albumin SerPl-mCnc 09/10/2016 Albumin SerPl-mCnc 3.7 3.4-5.0 Albumin/Glob SerPl 09/10/2016 Albumin/Glob SerPl 1.0 Prot SerPl-mCnc 09/10/2016 Prot SerPl-mCnc 7.5 6.4-8.2 Globulin Ser Calc-mCnc 09/10/2016 Globulin Ser Calc-mCnc 3.8 1.9-4.3 Bilirub SerPl-mCnc 09/10/2016 Bilirub SerPl-mCnc 0.4 0.2-1.0 Aspartate 09/10/2016 Aspartate 11 Low 15-37 aminotransferase aminotransferase [Enzymatic [Enzymatic activity/vol activity/volume] in Serum or Plasma Laboratory test 09/07/2016 D Dimer Quantitative < 200 Less Than 31, 32 finding ng/mL 230 Comprehensive 09/03/2016 Glucose 126 mg/dL High 74-106 33 Metabolic Panel BUN 9 mg/dL 7-18 33 Creatinine 1.0 mg/dL 0.6-1.3 33 Glom Filtration Rate, Estimate >60 mL/min >60 33 If >60 mL/min >60 33, 34 BUN/Creat 9.0 ratio 33 Sodium 141 mmol/L 136-145 33 Potassium 3.8 mmol/L 3.5-5.1 33 Chloride 110 mmol/L High 98-107 33 Carbon Dioxide 22 mmol/L 21-32 33 Anion Gap 9 mEq/L 8-16 33 Calcium 8.6 mg/dL 8.5-10.1 33 Total Protein 7.4 g/dL 6.4-8.2 33 Albumin 4.0 g/dL 3.4-5.0 33 Globulin 3.4 g/dL 1.9-4.3 33 Alb/Glob 1.2 ratio 33 Bilirubin,Total 0.4 mg/dL 0.2-1.0 33 Sgot/Ast 11 U/L Low 15-37 33, 35 SGPT/Alt 16 U/L 12-78 33 Alkaline Phosphatase 70 U/L 45-117 33 CBS W/Automated Diff 09/03/2016 White Blood Count 6.7 K/uL 3.1-10.7 33 Red Blood Count 4.17 M/uL 3.90-5.40 33 Hemoglobin 13.1 gm/dL 11.6-15.8 33 Hematocrit 39.4 % 36.0-46.1 33 Mean Cell Volume 94.5 fl 80.9-99.0 33 Mean Corpuscular HGB 31.4 pg 25.9-32.7 33 Mean Corpuscular HGB Conc 33.2 g/dL 30.8-34.3 33 Platelet Count 258 K/uL 150-400 33 Red Cell Distri Width SD 46.3 fl 3-47 33 Red Cell Distri Width %CV 13.9 % 11.7-14.4 33 Mean Platelet Volume 10.0 fL 8.9-12.4 33 Neut% 65.7 % 40.4-72.8 33 Lymph % 25.6 % 20.0-42.0 33 [place] % 8.0 % 4.3-13.2 33 Eo% 0.0 % 0.0-6.6 33 Bas% 0.7 % 0.0-1.1 33 Neut# 4.40 K/uL 1.8-7.0 33 Lymph # 1.72 K/uL 1.0-4.0 33 [place] # 0.54 K/uL 0.3-0.9 33 Eos # 0.00 K/uL 0.0-0.5 33 Baso # 0.05 K/uL 0.0-0.1 33 LDL Cholesterol Profile 09/03/2016 Cholesterol 179 mg/dL <200 33, 36 Triglycerides 148 mg/dL <150 33, 37 HDL Cholesterol 54 mg/dL >40 33, 38 LDL-Cholesterol 95 mg/dL < 100 33, 39 Glycohemoglobin A1c 09/03/2016 Glycohemoglobin (A1c) 6.3 % 4.2-6.3 33, 40 eAG 134 mg/dL 33 LDLc SerPl Calc-mCnc 09/03/2016 LDLc SerPl Calc-mCnc 95 < 100 Serum or plasma 09/03/2016 Serum or plasma 54 >40 cholesterol in HDL cholesterol in HDL measurement (ma measurement (mass/volume) Serum or plasma 09/03/2016 Serum or plasma 179 <200 cholesterol cholesterol measurement (mass/volu measurement (mass/volume) Serum or plasma 09/03/2016 Serum or plasma 148 <150 triglyceride triglyceride measurement (mass/vol measurement (mass/volume) [facility] 06/21/2016 Unloinc Results on file [facility] Results on File HPV High Risk 06/21/2016 HPV High Risk Results on file 41, 42 Serum or plasma 05/24/2016 Serum or plasma 0.93 0.76-1. thyroxine (T4) free thyroxine (T4) free 46 measurement (m measurement (mass/volume) TSH SerPl-aCnc 05/24/2016 TSH SerPl-aCnc 0.85 0.30-4. 20 Comprehensive 05/24/2016 Glucose 138 mg/dL High 74-106 43 Metabolic Panel BUN 13 mg/dL 7-18 43 Creatinine 0.8 mg/dL 0.6-1.3 43 Glom Filtration Rate, Estimate >60 mL/min >60 43 If >60 mL/min >60 43, 44 BUN/Creat 16.2 ratio 43 Sodium 142 mmol/L 136-145 43 Potassium 3.9 mmol/L 3.5-5.1 43 Chloride 110 mmol/L High 98-107 43 Carbon Dioxide 25 mmol/L 21-32 43 Anion Gap 7 mEq/L Low 8-16 43 Calcium 7.8 mg/dL Low 8.5-10.1 43 Total Protein 6.4 g/dL 6.4-8.2 43 Albumin 3.3 g/dL Low 3.4-5.0 43 Globulin 3.1 g/dL 1.9-4.3 43 Alb/Glob 1.1 ratio 43 Bilirubin,Total 0.2 mg/dL 0.2-1.0 43 Sgot/Ast 7 U/L Low 15-37 43, 45 SGPT/Alt 14 U/L 12-78 43 Alkaline Phosphatase 95 U/L 45-117 43 CBS W/Automated Diff 05/24/2016 White Blood Count 8.7 K/uL 3.1-10.7 43 Red Blood Count 3.93 M/uL 3.90-5.40 43 Hemoglobin 12.4 gm/dL 11.6-15.8 43 Hematocrit 37.4 % 36.0-46.1 43 Mean Cell Volume 95.2 fl 80.9-99.0 43 Mean Corpuscular HGB 31.6 pg 25.9-32.7 43 Mean Corpuscular HGB Conc 33.2 g/dL 30.8-34.3 43 Platelet Count 225 K/uL 155-360 43 Red Cell Distri Width SD 47.2 fl High 3-47 43 Red Cell Distri Width %CV 14.0 % 11.7-14.4 43 Mean Platelet Volume 10.0 fL 8.9-12.4 43 Neut% 60.4 % 40.4-72.8 43 Lymph % 33.4 % 20.0-42.0 43 [place] % 5.4 % 4.3-13.2 43 Eo% 0.1 % 0.0-6.6 43 Bas% 0.7 % 0.0-1.1 43 Neut# 5.28 K/uL 1.8-7.0 43 Lymph # 2.92 K/uL 1.0-4.0 43 [place] # 0.47 K/uL 0.3-0.9 43 Eos # 0.01 K/uL 0.0-0.5 43 Baso # 0.06 K/uL 0.0-0.1 43 LDL Cholesterol Profile 05/24/2016 Cholesterol 160 mg/dL <200 43, 46 Triglycerides 330 mg/dL High <150 43, 47 HDL Cholesterol 53 mg/dL >40 43, 48 LDL-Cholesterol 41 mg/dL < 100 43, 49 Glycohemoglobin A1c 05/24/2016 Glycohemoglobin (A1c) 5.8 % 4.2-6.3 43, 50 eAG 120 mg/dL 43 Laboratory test finding 05/24/2016 Thyroid Stim Hormone 0.85 uIU/mL 0.30- 4.20 43 Free T4 0.93 ng/dL 0.76-1.46 43 CBS W/Automated Diff 04/18/2016 White Blood Count 8.3 K/uL 3.1-10.7 51 Red Blood Count 4.11 M/uL 3.90-5.40 51 Hemoglobin 13.0 gm/dL 11.6-15.8 51 Hematocrit 37.6 % 36.0-46.1 51 Mean Cell Volume 91.5 fl 80.9-99.0 51 Mean Corpuscular HGB 31.6 pg 25.9-32.7 51 Mean Corpuscular HGB Conc 34.6 g/dL High 30.8-34.3 51 Platelet Count 211 K/uL 155-360 51 Red Cell Distri Width SD 46.6 fl 3-47 51 Red Cell Distri Width %CV 14.3 % 11.7-14.4 51 Mean Platelet Volume 9.0 fL 8.9-12.4 51 Neut% 53.2 % 40.4-72.8 51 Lymph % 36.9 % 17.0-46.1 51 [place] % 9.4 % 4.3-13.2 51 Eo% 0.1 % 0.0-6.6 51 Bas% 0.4 % 0.0-1.1 51 Neut# 4.43 K/uL 1.8-7.0 51 Lymph # 3.07 K/uL 1.8-7.0 51 [place] # 0.78 K/uL 0.3-0.9 51 Eos # 0.01 K/uL 0.0-0.5 51 Baso # 0.03 K/uL 0.0-0.1 51 Comprehensive Metabolic Panel 04/18/2016 Glucose 141 mg/dL High 74-106 51 BUN 6 mg/dL Low 7-18 51 Creatinine 0.9 mg/dL 0.6-1.3 51 Glom Filtration Rate, Estimate >60 mL/min >60 51 If >60 mL/min >60 51, 52 BUN/Creat 6.6 ratio 51 Sodium 139 mmol/L 136-145 51 Potassium 3.3 mmol/L Low 3.5-5.1 51 Chloride 108 mmol/L High 98-107 51 Carbon Dioxide 21 mmol/L 21-32 51 Anion Gap 10 mEq/L 8-16 51 Calcium 8.8 mg/dL 8.5-10.1 51 Total Protein 7.6 g/dL 6.4-8.2 51 Albumin 4.0 g/dL 3.4-5.0 51 Globulin 3.6 g/dL 1.9-4.3 51 Alb/Glob 1.1 ratio 51 Bilirubin,Total 0.5 mg/dL 0.2-1.0 51 Sgot/Ast 13 U/L Low 15-37 51, 53 SGPT/Alt 18 U/L 12-78 51 Alkaline Phosphatase 101 U/L 45-117 51 Laboratory test finding 04/18/2016 CK 82 U/L 26-192 51 Troponin-I < 0.015 ng/mL 51, 54 Laboratory test finding 04/18/2016 Alanine Aminotransferase (Alt/SGPT) 18 12-78 Albumin/Globulin Ratio 1.1 BUN/Creatinine Ratio 6.6 Basophils # (Auto) 0.03 0.0-0.1 Basophils (%) (Auto) 0.4 0.0-1.1 Blood Urea Nitrogen 6 Low 7-18 Calcium Level 8.8 8.5-10.1 Carbon Dioxide Level 21 21-32 Chloride Level 108 High 98-107 Eosinophils # (Auto) 0.01 0.0-0.5 Eosinophils (%) (Auto) 0.1 0.0-6.6 Glucose Screen 141 High 74-106 Lymphocytes (%) (Auto) 36.9 17.0-46.1 Mean Corpuscular Hemoglobin 31.6 25.9-32.7 Mean Corpuscular Hemoglobin Concent 34.6 High 30.8-34.3 Mean Corpuscular Volume 91.5 80.9-99.0 Monocytes # (Auto) 0.78 0.3-0.9 Monocytes (%) (Auto) 9.4 4.3-13.2 Neutrophils (%) (Auto) 53.2 40.4-72.8 Potassium Level 3.3 Low 3.5-5.1 RDW Coefficient of Variation 14.3 11.7-14.4 Red Cell Distribution Width 46.6 3-47 Sodium Level 139 136-145 Total Bilirubin 0.5 0.2-1.0 Aspartate Amino Transf 04/18/2016 Aspartate Amino Transf 13 Low 15-37 (Ast/Sgot) (Ast/Sgot) Lymphocytes # (Auto) 04/18/2016 Lymphocytes # (Auto) 3.07 1.8-7.0 Neutrophils # (Auto) 04/18/2016 Neutrophils # (Auto) 4.43 1.8-7.0 Laboratory test finding 12/01/2015 Vitamin D,25-Hydroxy 25.1 ng/mL Low 30.0-100.0 55 CBC W/Automated Diff 12/01/2015 White Blood Count 4.5 K/uL 3.1-10.7 Red Blood Count 3.98 M/uL 3.90-5.40 Hemoglobin 12.1 gm/dL 11.6-15.8 Hematocrit 37.3 % 36.0-46.1 Mean Cell Volume 93.7 fl 80.9-99.0 Mean Corpuscular HGB 30.4 pg 25.9-32.7 Mean Corpuscular HGB Conc 32.4 g/dL 30.8-34.3 Platelet Count 233 K/uL 155-360 Red Cell Distri Width SD 45.8 fl 3-47 Red Cell Distri Width %CV 13.8 % 11.7-14.4 Mean Platelet Volume 9.5 fL 8.9-12.4 Neut% 52.4 % 40.4-72.8 Lymph % 38.1 % 17.0-46.1 [place] % 8.2 % 4.3-13.2 Eo% 0.2 % 0.0-6.6 Bas% 1.1 % 0.0-1.1 Neut# 2.37 K/uL 1.8-7.0 Lymph # 1.72 K/uL Low 1.8-7.0 [place] # 0.37 K/uL 0.3-0.9 Eos # 0.01 K/uL 0.0-0.5 Baso # 0.05 K/uL 0.0-0.1 Comprehensive Metabolic Panel 12/01/2015 Glucose 111 mg/dL High 74-106 BUN 9 mg/dL 7-18 Creatinine 1.0 mg/dL 0.6-1.3 Glom Filtration Rate, Estimate >60 mL/min >60 If >60 mL/min >60 56 BUN/Creat 9.0 ratio Sodium 141 mmol/L 136-145 Potassium 4.1 mmol/L 3.5-5.1 Chloride 111 mmol/L High 98-107 Carbon Dioxide 24 mmol/L 21-32 Anion Gap 6 mEq/L Low 8-16 Calcium 8.3 mg/dL Low 8.5-10.1 Total Protein 6.7 g/dL 6.4-8.2 Albumin 3.5 g/dL 3.4-5.0 Globulin 3.2 g/dL 1.9-4.3 Alb/Glob 1.1 ratio Bilirubin,Total 0.2 mg/dL 0.2-1.0 Sgot/Ast 11 U/L Low 15-37 57 SGPT/Alt 21 U/L 12-78 Alkaline Phosphatase 92 U/L 45-117 Glycohemoglobin A1c 12/01/2015 Glycohemoglobin (A1c) 6.1 % 4.2-6.3 58 eAG 128 mg/dL LDL Cholesterol Profile 12/01/2015 Cholesterol 161 mg/dL <200 59 Triglycerides 181 mg/dL High <150 60 HDL Cholesterol 46 mg/dL >40 61 LDL-Cholesterol 79 mg/dL < 100 62 Microalbumin,Random Urine 11/29/2015 Microalbumin,Urine < 5.0 mg/L &lt ; 20.0 Laboratory test finding 05/06/2015 Troponin-I < 0.015 63 ng/mL Comprehensive Metabolic Panel See Note 64 Laboratory test finding 05/06/2015 CBS W/Automated Diff See Note 65 Laboratory test finding 05/06/2015 Urine Creatinine Concentration 155 Urine Microalbumin 6.8 < 20.0 Urine Microalbumin/Creatinine Ratio 4.4 < 30.0 Comprehensive Metabolic Panel 05/06/2015 Glucose 91 mg/dL 74-106 BUN 5 mg/dL Low 7-18 Creatinine 0.9 mg/dL 0.6-1.3 Glom Filtration Rate, Estimate >60 mL/min >60 If >60 mL/min >60 66 BUN/Creat 5.5 ratio Sodium 141 mmol/L 136-145 Potassium 3.8 mmol/L 3.5-5.1 Chloride 108 mmol/L High 98-107 Carbon Dioxide 25 mmol/L 21-32 Anion Gap 8 mEq/L 8-16 Calcium 8.6 mg/dL 8.5-10.1 Total Protein 7.5 g/dL 6.4-8.2 Albumin 3.9 g/dL 3.4-5.0 Globulin 3.6 g/dL 1.9-4.3 Alb/Glob 1.1 ratio Bilirubin,Total 0.3 mg/dL 0.2-1.0 Sgot/Ast 11 U/L Low 15-37 67 SGPT/Alt 22 U/L 12-78 Alkaline Phosphatase 116 U/L 45-117 CBS W/Automated Diff 05/06/2015 White Blood Count 5.8 K/uL 3.1-10.7 Red Blood Count 4.16 M/uL 3.90-5.40 Hemoglobin 13.2 gm/dL 11.6-15.8 Hematocrit 39.0 % 36.0-46.1 Mean Cell Volume 93.8 fl 80.9-99.0 Mean Corpuscular HGB 31.7 pg 25.9-32.7 Mean Corpuscular HGB Conc 33.8 g/dL 30.8-34.3 Platelet Count 228 K/uL 155-360 Red Cell Distri Width SD 47.3 fl High 3-47 Red Cell Distri Width %CV 14.3 % 11.7-14.4 Mean Platelet Volume 9.3 fL 8.9-12.4 Neut% 49.9 % 40.4-72.8 Lymph % 40.8 % 17.0-46.1 [place] % 6.4 % 4.3-13.2 Eo% 2.4 % 0.0-6.6 Bas% 0.5 % 0.0-1.1 Neut# 2.88 K/uL 1.8-7.0 Lymph # 2.36 K/uL 1.8-7.0 [place] # 0.37 K/uL 0.3-0.9 Eos # 0.14 K/uL 0.0-0.5 Baso # 0.03 K/uL 0.0-0.1 Laboratory test finding 05/06/2015 Vitamin D,25-Hydroxy 38.4 ng/mL 30.0- 100.0 68 Glycohemoglobin A1c 05/06/2015 Glycohemoglobin (A1c) 5.7 % 4.2-6.3 69 eAG 117 mg/dL LDL Cholesterol Profile 05/06/2015 Cholesterol 202 mg/dL High <200 70 Triglycerides 169 mg/dL High <150 71 HDL Cholesterol 50 mg/dL >40 72 LDL-Cholesterol 118 mg/dL < 100 73 Microalb/Creat Ratio,Random 05/06/2015 Microalbumin,Urine 6.8 mg/L < 20.0 Microalbumin/Creatinine Ratio 4.4 ug/mgCrt < 30.0 Urine Creatinine Conc 155 mg/dL Laboratory test finding 05/06/2015 Basophils # (Auto) 0.03 0.0-0.1 Basophils (%) (Auto) 0.5 0.0-1.1 Eosinophils # (Auto) 0.14 0.0-0.5 Eosinophils (%) (Auto) 2.4 0.0-6.6 Estimated Average Glucose (eAG) 117 Lymphocytes # (Auto) 2.36 1.8-7.0 Monocytes # (Auto) 0.37 0.3-0.9 Monocytes (%) (Auto) 6.4 4.3-13.2 Neutrophils # (Auto) 2.88 1.8-7.0 Neutrophils (%) (Auto) 49.9 40.4-72.8 RDW Coefficient of Variation 14.3 11.7-14.4 Sodium Level 141 136-145 Laboratory test finding 04/02/2013 Hemoglobin A1c 6.4 % High Less than 6.0 74 TSH (Thyroid Stimulating Horm) 0.75 miu/mL 0.34-5.60 CBC Auto Diff 04/02/2013 Abs Basophils 0.1 10^3/uL 0-0.2 Abs Eosinophils 0 10^3/uL 0-0.6 Abs Lymphocytes 2.6 10^3/uL 1.0-4.8 Abs Monocytes 0.4 10^3/uL 0-0.8 Abs Neutrophils 2.5 10^3/uL 1.5-7.7 Abs Nucleated RBC 0 10^3/uL Hematocrit 36 % 35-47 Hemoglobin 11.9 g/dL Low 12.0-16.0 Mean Corpuscular HGB Conc 33 g/dL 31-36 Mean Corpuscular Hemoglobin 30 pg 27-31 Mean Corpuscular Volume 92 fL 80-97 Mean Platelet Volume 8 um3 7.4-10.4 Platelet Count 276 10^3/uL 150-450 Red Blood Count 3.95 10^6/uL Low 4.0-5.4 Red Cell Distribution Width 14 % 10.5-15 White Blood Count 5.6 10^3/uL 4.8-10.8 Comp Metabolic Panel 04/02/2013 Albumin 3.7 g/dL 3.6-5.4 Albumin/Globulin Ratio 1.7 1-3 Alkaline Phosphatase 76 U/L 30-110 Alt 16 U/L 14-54 Anion Gap 8.0 mmol/L 2-11 Ast 13 U/L 12-42 BUN/Creatinine Ratio 10.0 8-20 Blood Urea Nitrogen 8 mg/dL 6-24 Calcium 8.9 mg/dL 8.1-9.9 Chloride 109 mmol/L 101-111 Co2 Carbon Dioxide 24.0 mmol/L 22-32 Creatinine 0.80 mg/dL 0.50-1.40 Egfr 98.9 >60 75 Egfr Non- 76.9 >60 Globulin 2.2 g/dL 2-4 Glucose 84 mg/dL 70-100 Potassium 4.3 mmol/L 3.5-5.0 Sodium 141 mmol/L 133-145 Total Bilirubin 0.5 mg/dL 0.4-1.5 Total Protein 5.9 g/dL Low 6.2-8.1 Lipid Profile (Trig/Chol/HDL) 04/02/2013 Cholesterol 149 mg/dL Less than 200 Cholesterol/HDL Ratio 3.7 Average 1-4.44 HDL Cholesterol 40 mg/dL 40-60 76 LDL Cholesterol 58.6 Less Than 100 77 Triglycerides 252 mg/dL High 40-200 Manual Differential 04/02/2013 Basophil % 1 % 0-2 Lymphocytes % 44 % 25-47 Monocytes % 11 % 0-13 Neutrophil % 44 % 38-83 RBC Morphology Normal Normal Vitamin D, 25 Hydroxy 04/02/2013 25-Hydroxy Vitamin D Total 41 ng/mL 78 25-Hydroxy Vitamin D2 24 ng/mL 25-Hydroxy Vitamin D3 17 ng/mL Laboratory test finding 02/05/2013 Alb/Glob 1.0 ratio Albumin 3.5 g/dL 3.5-5.0 Alkaline Phosphatase 103 U/L 50-136 Antinuclear Antibodies, Ifa See patterns . 79 Calcium 8.6 mg/dL 8.5-10.1 Globulin 3.5 g/dL 1.9-4.3 L[place] AB/Total Immunoglobulins < 0.91 index 0.00-0.90 80 Note See Note 81 Rheumatoid Factor Screen Negative Negative Sedimentation Rate 18 mm/hr 0-20 Speckled Pattern 1:80 . Thyroid Stim Hormone 1.75 uIU/mL 0.49-4.67 Total Protein 7.0 g/dL 6.3-8.0 Uric Acid 3.6 mg/dL 2.1-7.4 Vitamin B12 514 pg/mL 200-900 82 Vitamin D,25-Hydroxy 18.3 ng/mL Low 30.0-100.0 83 Lupus Anticoagulant Reflex 02/05/2013 DRVVT 40.6 sec 0.0-55.1 Note: Comment: . 84 PTT-LA 35.3 sec 0.0-50.0 Laboratory test 01/30/2013 Cecilia (Anti-Nuclear AB) Negative Negative 85, 86 finding Screen Creatine Kinase 79 U/L 0-200 85 Rheumatoid Factor <15 Iu/ml <15 85, 87 Laboratory test 11/27/2012 Gastric Biopsy/Polyp See Note 88 finding Laboratory test 10/14/2012 Hemoglobin A1c 6.2 % High Less than 6.0 89 finding TSH (Thyroid Stimulating Horm) 1.50 miu/mL 0.34-5.60 CBC Auto Diff 10/14/2012 Abs Basophils 0.1 10^3/uL 0-0.2 Abs Eosinophils 0.3 10^3/uL 0-0.6 Abs Lymphocytes 3.3 10^3/uL 1.0-4.8 Abs Monocytes 0.5 10^3/uL 0-0.8 Abs Neutrophils 7.7 10^3/uL 1.5-7.7 Abs Nucleated RBC 0 10^3/uL Basophil % 0.6 % 0-2 Eosinophil % 2.2 % 0-6 Granulocyte % 64.9 % 38-83 Hematocrit 43 % 35-47 Hemoglobin 14.2 g/dL 12.0-16.0 Lymphocyte % 27.8 % 25-47 Mean Corpuscular HGB Conc 33 g/dL 31-36 Mean Corpuscular Hemoglobin 31 pg 27-31 Mean Corpuscular Volume 96 fL 80-97 Mean Platelet Volume 7 um3 Low 7.4-10.4 Monocyte % 4.5 % 1-9 Nucleated Red Blood Cells % 0 Platelet Count 284 10^3/uL 150-450 Red Blood Count 4.52 10^6/uL 4.0-5.4 Red Cell Distribution Width 13 % 10.5-15 White Blood Count 11.9 10^3/uL High 4.8-10.8 Comp Metabolic Panel 10/14/2012 Albumin 3.9 g/dL 3.6-5.4 Albumin/Globulin Ratio 1.5 1-3 Alkaline Phosphatase 82 U/L 30-110 Alt 14 U/L 14-54 Anion Gap 8.0 mmol/L 2-11 Ast 15 U/L 12-42 BUN/Creatinine Ratio 10.0 8-20 Blood Urea Nitrogen 8 mg/dL 6-24 Calcium 9.7 mg/dL 8.1-9.9 Chloride 105 mmol/L 101-111 Co2 Carbon Dioxide 26.0 mmol/L 22-32 Creatinine 0.80 mg/dL 0.50-1.40 Egfr 98.9 >60 90 Egfr Non- 76.9 >60 Globulin 2.6 g/dL 2-4 Glucose 101 mg/dL High 70-100 Potassium 4.1 mmol/L 3.5-5.0 Sodium 139 mmol/L 133-145 Total Bilirubin 0.5 mg/dL 0.4-1.5 Total Protein 6.5 g/dL 6.2-8.1 HIV 1/2 AB Evaluation 10/14/2012 HIV 1 2 Antibody Nonreactive Nonreactive 91 Lipid Profile 10/14/2012 Cholesterol 203 mg/dL High Less than 200 (Trig/Chol/HDL) Cholesterol/HDL Ratio 4.3 Average 1-4.44 HDL Cholesterol 47 mg/dL 40-60 92 LDL Cholesterol 110.2 High Less Than 100 93 Triglycerides 229 mg/dL High 40-200 Laboratory test finding 07/21/2012 TSH (Thyroid Stimulating 0.84 miu/mL 0.34-5.60 Horm) CBC Auto Diff 07/21/2012 Abs Basophils 0.1 10^3/uL 0-0.2 Abs Eosinophils 0.3 10^3/uL 0-0.6 Abs Lymphocytes 2.7 10^3/uL 1.0-4.8 Abs Monocytes 0.4 10^3/uL 0-0.8 Abs Neutrophils 4.3 10^3/uL 1.5-7.7 Abs Nucleated RBC 0.01 10^3/uL Basophil % 0.8 % 0-2 Eosinophil % 3.4 % 0-6 Granulocyte % 55.1 % 38-83 Hematocrit 40 % 35-47 Hemoglobin 13.9 g/dL 12.0-16.0 Lymphocyte % 35.0 % 25-47 Mean Corpuscular HGB Conc 35 g/dL 31-36 Mean Corpuscular Hemoglobin 33 pg High 27-31 Mean Corpuscular Volume 95 fL 80-97 Mean Platelet Volume 8 um3 7.4-10.4 Monocyte % 5.7 % 1-9 Nucleated Red Blood Cells % 0.1 Platelet Count 223 10^3/uL 150-450 Red Blood Count 4.16 10^6/uL 4.0-5.4 Red Cell Distribution Width 14 % 10.5-15 White Blood Count 7.7 10^3/uL 4.8-10.8 Comp Metabolic Panel 07/21/2012 Albumin 3.7 g/dL 3.6-5.4 Albumin/Globulin Ratio 1.5 1-3 Alkaline Phosphatase 82 U/L 30-110 Alt 14 U/L 14-54 Anion Gap 10.0 mmol/L 2-11 Ast 14 U/L 12-42 BUN/Creatinine Ratio 10.0 8-20 Blood Urea Nitrogen 8 mg/dL 6-24 Calcium 9.6 mg/dL 8.1-9.9 Chloride 106 mmol/L 101-111 Co2 Carbon Dioxide 24.0 mmol/L 22-32 Creatinine 0.80 mg/dL 0.50-1.40 Egfr 99.3 >60 94 Egfr Non- 77.2 >60 Globulin 2.4 g/dL 2-4 Glucose 93 mg/dL 70-100 Potassium 4.2 mmol/L 3.5-5.0 Sodium 140 mmol/L 133-145 Total Bilirubin 0.7 mg/dL 0.4-1.5 Total Protein 6.1 g/dL Low 6.2-8.1 H. Pylori Evaluation Quantitat 07/21/2012 H pylori IgA Ab Index 2.07 95 H pylori IgM AB Index 28.30 96 Helicobacter pylori IgA Ab Negative Negative Helicobacter pylori IgG Ab <0.75 index 97 Helicobacter pylori IgM Ab Negative Negative Lipid Profile (Trig/Chol/HDL) 07/21/2012 Cholesterol 170 mg/dL Less than 200 Cholesterol/HDL Ratio 3.9 Average 1-4.44 HDL Cholesterol 44 mg/dL 40-60 98 LDL Cholesterol 72.2 mg/dL Less Than 100 99 Triglycerides 269 mg/dL High 40-200 Urine Screen 03/26/2012 Urine Bilirubin - Dipstick Negative Negative Urine Blood Negative Negative Urine Clarity Clear Clear Urine Color Yellow Yellow Urine Glucose - Dipstick Negative mg/dL Negative Urine Ketone Negative mg/dL Negative Urine Leuk Esterase Negative Negative Urine Nitrite - Dipstick Negative Negative Urine PH 6.0 Low 6.5-7.5 Urine Protein - Dipstick Negative mg/dL Negative Urine Specific Wallace 1.010 1.010-1.030 Urine Urobilinogen - Dipstick 0.2 E.U./dL 0.2-1.0 Urine Culture And 03/25/2012 Urine Culture (See Note) 100 Sensitivities Laboratory test finding 02/28/2012 Hemoglobin A1c 5.7 % Less than 6.0 101 Pathologist Review (See Note) 102 TSH (Thyroid Stimulating Horm) 1.09 MIU/ML 0.34-5.60 CBC Auto Diff 02/28/2012 Abs Basophils 0.1 10^3/uL 0-0.2 Abs Basophils 0.1 10^3/uL 0-0.2 Abs Eosinophils 0.2 10^3/uL 0-0.6 Abs Eosinophils 0.2 10^3/uL 0-0.6 Abs Lymphocytes 3.3 10^3/uL 1.0-4.8 Abs Lymphocytes 3.3 10^3/uL 1.0-4.8 Abs Monocytes 0.4 10^3/uL 0-0.8 Abs Monocytes 0.4 10^3/uL 0-0.8 Abs Neutrophils 2.8 10^3/uL 1.5-7.7 Abs Neutrophils 2.8 10^3/uL 1.5-7.7 Abs Nucleated RBC 0.01 10^3/uL Abs Nucleated RBC 0.01 10^3/uL Hematocrit 41 % 35-47 Hematocrit 41 % 35-47 Hemoglobin 13.9 g/dL 12.0-16.0 Hemoglobin 13.9 g/dL 12.0-16.0 Mean Corpuscular HGB Conc 34 g/dL 31-36 Mean Corpuscular HGB Conc 34 g/dL 31-36 Mean Corpuscular Hemoglobin 33 pg High 27-31 Mean Corpuscular Hemoglobin 33 pg High 27-31 Mean Corpuscular Volume 96 fL 80-97 Mean Corpuscular Volume 96 fL 80-97 Mean Platelet Volume 8 um3 7.4-10.4 Mean Platelet Volume 8 um3 7.4-10.4 Platelet Count 236 10^3/uL 150-450 Platelet Count 236 10^3/uL 150-450 Red Blood Count 4.26 10^6/uL 4.0-5.4 Red Blood Count 4.26 10^6/uL 4.0-5.4 Red Cell Distribution Width 13 % 10.5-15 Red Cell Distribution Width 13 % 10.5-15 White Blood Count 6.7 10^3/uL 4.8-10.8 White Blood Count 6.7 10^3/uL 4.8-10.8 Comp Metabolic Panel 02/28/2012 Albumin 3.8 GM/DL 3.6-5.4 Albumin/Globulin Ratio 1.8 1-3 Alkaline Phosphatase 79 U/L 30-110 Alt 11 U/L Low 14-54 Anion Gap 7.0 mmol/L 2-11 Ast 13 U/L 12-42 BUN/Creatinine Ratio 12.2 8-20 Blood Urea Nitrogen 11 mg/dL 6-24 Calcium 9.1 mg/dL 8.1-9.9 Chloride 109 mmol/L 101-111 Co2 Carbon Dioxide 25.0 mmol/L 22-32 Creatinine 0.90 mg/dL 0.50-1.40 Egfr 86.7 >60 103 Egfr Non- 67.4 >60 Globulin 2.1 GM/DL 2-4 Glucose 92 mg/dL 70-100 Potassium 3.9 mmol/L 3.5-5.0 Sodium 141 mmol/L 133-145 Total Bilirubin 0.4 mg/dL 0.1-1.0 104 Total Protein 5.9 GM/DL Low 6.2-8.1 Lipid Profile (Trig/Chol/HDL) 02/28/2012 Cholesterol 173 mg/dL Less than 200 105 Cholesterol/HDL Ratio 3.3 AVERAGE 1-4.44 HDL Cholesterol 53 mg/dL 40-60 106 LDL Cholesterol 73.4 mg/dL Less Than 100 Triglycerides 233 mg/dL High 40-200 Manual Differential 02/28/2012 Band % 0 % 0-8 Basophil % 0 % 0-2 Blast % 0 % Eosinophils % 3.0 % 0-6 Lymphocytes % 52.0 % High 25-47 Metamyelocytes % 0 % 0-2 Monocytes % 3.0 % 0-13 Myelocytes % 0 % 0-1 Neutrophil % 40.0 % 38-83 Promyelocytes % 0 % RBC Morphology Normal Normal Reactive Lymph % 2.0 % 0-6 Urine Microalbumin Random 02/28/2012 Ur Microalbumin (Mg/L) 3.0 mg/L 107 Urine Creatinine 116.5 mg/dL Urine Microalbumin/Creatinine 2.6 UG/MG Less Than 31 Urine Culture & 11/22/2011 M <See 108 Sensitivi Note> Comp Metabolic Panel 11/22/2011 Albumin 3.9 GM/DL 3.6-5.4 Albumin/Globulin Ratio 1.7 1-3 Alkaline Phosphatase 87 U/L 30-110 Alt (SGPT) 18 U/L 14-54 Anion Gap 3.0 mmol/L 2-11 109 Ast (Sgot) 22 U/L 12-42 BUN 8 mg/dL 6-24 BUN/Creatinine Ratio 8.9 8-20 Bilirubin Total 0.8 mg/dL 0.4-1.5 110 Calcium 9.6 mg/dL 8.1-9.9 Chloride 109 mmol/L 101-111 Co2 (Carbon Dioxide) 25.0 mmol/L 22-32 Creatinine 0.9 mg/dL 0.50-1.40 Globulin 2.3 GM/DL 2-4 Glucose 80 mg/dL 70-100 One Over Creatinine 1.11 Potassium 4.1 mmol/L 3.5-5.0 Sodium 137 mmol/L 135-145 Total Protein 6.2 GM/DL 6.2-8.1 eGFR 86.7 > 60 111 eGFR Non- 67.4 > 60 CBC Auto Diff 11/22/2011 Abs Basophils 0.1 0-0.2 Abs Eosinophils 0.1 0-0.6 Abs Lymphs 3.9 1.0-4.8 Abs Mononuclear 0.5 0-0.8 Absolute Neutrophil Count 5.3 1.5-7.7 Basophil % 0.6 % 0-2 Eosinophil % 1.5 % 0-6 Gran % 53.4 % 38-83 Hematocrit 42 % 35-47 Hemoglobin 14.6 g/dL 12.0-16.0 Lymph % 39.4 % 20-45 Mean Corpuscular HGB Cone 35 g/dL 32-36 Mean Corpuscular Hemoglob 33 pg High 27-31 Mean Corpuscular Volume 95 um3 79-97 Mean Platelet Volume 7.8 um3 7.4-10.4 Mononuclear % 5.1 % 1-9 Platelet Count 228 CUMM 150-450 Red Cell Count 4.43 CUMM 4.2-5.4 Redcell Distribution WDTH 14 % 10.5-15 White Blood Count 9.9 CUMM 4.8-10.8 Laboratory test finding 11/22/2011 Hemoglobin A1c 6.0 % Less Than 6.0 112 Laboratory test finding 10/11/2011 Free Thyroxine 0.76 ng/dL 0.61-1.24 Hemoglobin A1c 6.0 % Less Than 6.0 113 TSH 1.23 MIU/ML 0.34-5.60 Thyroxine 8.3 g/dL 5-12 CBC Auto Diff 10/11/2011 Abs Basophils 0 0-0.2 Abs Eosinophils 0.1 0-0.6 Abs Lymphs 3.2 1.0-4.8 Abs Mononuclear 0.4 0-0.8 Absolute Neutrophil Count 4.7 1.5-7.7 Basophil % 0.5 % 0-2 Eosinophil % 1.7 % 0-6 Gran % 55.8 % 38-83 Hematocrit 40 % 35-47 Hemoglobin 14.0 g/dL 12.0-16.0 Lymph % 37.4 % 25-47 Mean Corpuscular HGB Cone 35 g/dL 32-36 Mean Corpuscular Hemoglob 33 pg High 27-31 Mean Corpuscular Volume 94 um3 79-97 Mean Platelet Volume 7.4 um3 7.4-10.4 Mononuclear % 4.6 % 1-9 Platelet Count 247 CUMM 150-450 Red Cell Count 4.31 CUMM 4.2-5.4 Redcell Distribution WDTH 14 % 10.5-15 White Blood Count 8.5 CUMM 4.8-10.8 Comp Metabolic Panel 10/11/2011 Albumin 3.7 GM/DL 3.6-5.4 Albumin/Globulin Ratio 1.3 1-3 Alkaline Phosphatase 89 U/L 30-110 Alt (SGPT) 16 U/L 14-54 Anion Gap 6.0 mmol/L 2-11 114 Ast (Sgot) 16 U/L 12-42 BUN 11 mg/dL 6-24 BUN/Creatinine Ratio 12.2 8-20 Bilirubin Total 0.8 mg/dL 0.4-1.5 115 Calcium 9.3 mg/dL 8.1-9.9 Chloride 108 mmol/L 101-111 Co2 (Carbon Dioxide) 24.0 mmol/L 22-32 Creatinine 0.9 mg/dL 0.50-1.40 Globulin 2.9 GM/DL 2-4 Glucose 88 mg/dL 70-100 One Over Creatinine 1.11 Potassium 4.2 mmol/L 3.5-5.0 Sodium 138 mmol/L 135-145 Total Protein 6.6 GM/DL 6.2-8.1 eGFR 86.7 > 60 116 eGFR Non- 67.4 > 60 Lipid Profile (Trig/Chol/HDL) 10/11/2011 Cholesterol 187 mg/dL Less Than 200 117 Cholesterol/HDL Ratio 4.16 AVERAGE 1-4.44 High Density Lipoprotein 45 mg/dL 40-60 118 Low Density Lipoprotein 100 mg/dL Less Than 100 119 Triglyceride 212 mg/dL High 40-200 Liver Function Panel 10/11/2011 Bilirubin Direct 0.1 mg/dL 0.1-0.5 Indirect Bilirubin 0.7 mg/dL 0.3-1.0 120 Laboratory test 07/17/2011 Stool Culture <See 121 finding Note> Manual Differential 07/05/2011 Absolute Neutrophil 3.1 Count Anisocytosis Slight Atypical Lymph 2 % 0-6 Lymphocyte 45 % 25-47 Monocyte 8 % 0-13 Polysegmented Neutrophil 45 % 38-83 Liver Function Panel 07/05/2011 Bilirubin Direct 0.1 mg/dL 0.1-0.5 Indirect Bilirubin 0.7 mg/dL 0.3-1.0 122 Lipid Profile (Trig/Chol/HDL) 07/05/2011 Cholesterol 170 mg/dL Less Than 200 123 Cholesterol/HDL Ratio 4.25 AVERAGE 1-4.44 High Density Lipoprotein 40 mg/dL 40-60 124 Low Density Lipoprotein 70 mg/dL Less Than 100 125 Triglyceride 300 mg/dL High 40-200 CBC Auto Diff 07/05/2011 Hematocrit 39 % 35-47 Hemoglobin 13.7 g/dL 12.0-16.0 Mean Corpuscular HGB Cone 35 g/dL 32-36 Mean Corpuscular Hemoglob 33 pg High 27-31 Mean Corpuscular Volume 94 um3 79-97 Mean Platelet Volume 7.7 um3 7.4-10.4 126 Platelet Count 235 CUMM 150-450 Red Cell Count 4.13 CUMM Low 4.2-5.4 Redcell Distribution WDTH 14 % 10.5-15 White Blood Count 7.1 CUMM 4.8-10.8 Comp Metabolic Panel 07/05/2011 Albumin 3.9 GM/DL 3.6-5.4 Albumin/Globulin Ratio 1.4 1-3 Alkaline Phosphatase 84 U/L 30-110 Alt (SGPT) 20 U/L 14-54 Anion Gap 5.0 mmol/L 2-11 127 Ast (Sgot) 20 U/L 12-42 BUN 6 mg/dL 6-24 BUN/Creatinine Ratio 6.7 Low 8-20 Bilirubin Total 0.8 mg/dL 0.4-1.5 128 Calcium 9.4 mg/dL 8.1-9.9 Chloride 111 mmol/L 101-111 Co2 (Carbon Dioxide) 23.0 mmol/L 22-32 Creatinine 0.9 mg/dL 0.50-1.40 Globulin 2.7 GM/DL 2-4 Glucose 82 mg/dL 70-100 One Over Creatinine 1.11 Potassium 3.9 mmol/L 3.5-5.0 Sodium 139 mmol/L 135-145 Total Protein 6.6 GM/DL 6.2-8.1 eGFR 87.1 > 60 129 eGFR Non- 67.7 > 60 Laboratory test finding 07/05/2011 Hemoglobin A1c 5.6 % Less Than 6.0 130 TSH 0.20 MIU/ML Low 0.34-5.60 Laboratory test finding 05/31/2011 Skin Biopsy See Note 131 Laboratory test finding 05/02/2011 Skin Biopsy See Note 132 Laboratory test finding 03/02/2011 Hemoglobin A1c 6.3 % High Less Than 6.0 133 TSH 2.07 MIU/ML 0.34-5.60 CBC Auto Diff 03/02/2011 Abs Basophils 0 0-0.2 Abs Eosinophils 0.1 0-0.6 Abs Lymphs 2.6 1.0-4.8 Abs Mononuclear 0.3 0-0.8 Absolute Neutrophil Count 3.8 1.5-7.7 Basophil % 0.2 % 0-2 Eosinophil % 0.8 % 0-6 Gran % 55.9 % 38-83 Hematocrit 39 % 35-47 Hemoglobin 13.3 g/dL 12.0-16.0 Lymph % 38.4 % 25-47 Mean Corpuscular HGB Cone 35 g/dL 32-36 Mean Corpuscular Hemoglob 32 pg High 27-31 Mean Corpuscular Volume 92 um3 79-97 Mean Platelet Volume 7.5 um3 7.4-10.4 Mononuclear % 4.7 % 1-9 Platelet Count 242 CUMM 150-450 Red Cell Count 4.17 CUMM Low 4.2-5.4 Redcell Distribution WDTH 14 % 10.5-15 White Blood Count 6.8 CUMM 4.8-10.8 Comp Metabolic Panel 03/02/2011 Albumin 4.1 GM/DL 3.6-5.4 Albumin/Globulin Ratio 1.9 1-3 Alkaline Phosphatase 100 U/L 30-110 Alt (SGPT) 20 U/L 14-54 Anion Gap 7.0 mmol/L 2-11 134 Ast (Sgot) 17 U/L 12-42 BUN 6 mg/dL 6-24 BUN/Creatinine Ratio 6.7 Low 8-20 Bilirubin Total 0.7 mg/dL 0.4-1.5 135 Calcium 9.5 mg/dL 8.1-9.9 Chloride 109 mmol/L 101-111 Co2 (Carbon Dioxide) 24.0 mmol/L 22-32 Creatinine 0.9 mg/dL 0.50-1.40 Globulin 2.2 GM/DL 2-4 Glucose 88 mg/dL 70-100 One Over Creatinine 1.11 Potassium 4.3 mmol/L 3.5-5.0 Sodium 140 mmol/L 135-145 Total Protein 6.3 GM/DL 6.2-8.1 eGFR 87.1 > 60 136 eGFR Non- 67.7 > 60 Lipid Profile (Trig/Chol/HDL) 03/02/2011 Cholesterol 151 mg/dL Less Than 200 137 Cholesterol/HDL Ratio 3.97 AVERAGE 1-4.44 High Density Lipoprotein 38 mg/dL Low 40-60 138 Low Density Lipoprotein 76 mg/dL Less Than 100 139 Triglyceride 184 mg/dL 40-200 Liver Function Panel 03/02/2011 Bilirubin Direct 0.1 mg/dL 0.1-0.5 Indirect Bilirubin 0.6 mg/dL 0.3-1.0 140 Laboratory test finding 02/08/2011 Skin Biopsy See Note 141 Laboratory test finding 12/19/2010 Hemoglobin A1c 6.9 % High Less Than 6.0 142 Ictotest Negative 143 TSH 2.04 MIU/ML 0.34-5.60 CBC Auto Diff 12/19/2010 Abs Basophils 0 0-0.2 Abs Eosinophils 0.2 0-0.6 Abs Lymphs 2.5 1.0-4.8 Abs Mononuclear 0.4 0-0.8 Absolute Neutrophil Count 3.8 1.5-7.7 Basophil % 0.4 % 0-2 Eosinophil % 2.3 % 0-6 Gran % 54.6 % 38-83 Hematocrit 38 % 35-47 Hemoglobin 13.4 g/dL 12.0-16.0 Lymph % 36.7 % 25-47 Mean Corpuscular HGB Cone 36 g/dL 32-36 Mean Corpuscular Hemoglob 32 pg High 27-31 Mean Corpuscular Volume 91 um3 79-97 Mean Platelet Volume 7.6 um3 7.4-10.4 Mononuclear % 6.0 % 1-9 Platelet Count 238 CUMM 150-450 Red Cell Count 4.16 CUMM Low 4.2-5.4 Redcell Distribution WDTH 14 % 10.5-15 White Blood Count 6.9 CUMM 4.8-10.8 Comp Metabolic Panel 12/19/2010 Albumin 3.9 GM/DL 3.6-5.4 Albumin/Globulin Ratio 1.5 1-3 Alkaline Phosphatase 119 U/L High 30-110 Alt (SGPT) 18 U/L 14-54 Anion Gap 6.0 mmol/L 2-11 144 Ast (Sgot) 16 U/L 12-42 BUN 7 mg/dL 6-24 BUN/Creatinine Ratio 7.8 Low 8-20 Bilirubin Total 0.8 mg/dL 0.4-1.5 145 Calcium 9.3 mg/dL 8.1-9.9 Chloride 107 mmol/L 101-111 Co2 (Carbon Dioxide) 25.0 mmol/L 22-32 Creatinine 0.9 mg/dL 0.50-1.40 Globulin 2.6 GM/DL 2-4 Glucose 127 mg/dL High 70-100 One Over Creatinine 1.11 Potassium 4.2 mmol/L 3.5-5.0 Sodium 138 mmol/L 135-145 Total Protein 6.5 GM/DL 6.2-8.1 eGFR 87.1 > 60 146 eGFR Non- 67.7 > 60 Iron & Iron Binding Capacity 12/19/2010 % Iron Saturation 27 % 15-55 Iron Total 97 g/dL 28-170 Total Iron Binding Capacity 356 g/dL 250-450 Unsaturated Iron Binding 259 g/dL Lipid Profile (Trig/Chol/HDL) 12/19/2010 Cholesterol 198 mg/dL Less Than 200 147 Cholesterol/HDL Ratio 5.21 AVERAGE High 1-4.44 High Density Lipoprotein 38 mg/dL Low 40-60 148 Low Density Lipoprotein 96 mg/dL Less Than 100 149 Triglyceride 321 mg/dL High 40-200 Urinalysis W/Microscopic 12/19/2010 Appearance-Urine Clear Clear Bilirubin-Ur See Ictotest Negative Blood-Urine Negative Negative Epith Cells-Ur Moderate None Esterase-Urine Trace Negative Glucose-Urine Negative Negative Ketones-Urine Trace Negative Mucus Urine Moderate None Nitrite Negative Negative PH-Urine 6.0 5-9 Protein-Urine Negative Negative RBC-Urine None Seen 0-2 Specific Wallace-Ur 1.027 1.010-1.030 Ua Color Roro Yellow [id number] Negative Negative WBC-Urine 2-5 0-5 Urine Microalbumin 12/19/2010 Marty Alb/Creatinine < 0.7 Less Than 30 150 Random Ratio Ug/MG Microalbumin (MG/L) < 2.0 mg/L Urine Creatinine 250.27 mg/dL 1 E11.9 2 E78.5 E11.9 I10 3 Note: Persistent reduction for 3 months or more in an eGFR <60 mL/min/1.73 m2 defines CKD. Patients with eGFR values >/=60 mL/min/1.73 m2 may also have CKD if evidence of persistent proteinuria is present. The original MDRD equation for estimated GFR is not valid for patients less than 18 years of age. Additional information may be found at www.[email or web address]. 4 Reference Guidelines*: Desirable: ........... < 200 mg/dL Borderline High: ..... 200-239 mg/dL High: ................ >=240 mg/dL * The National Cholesterol Education Program (NCEP) 5 Reference Guidelines*: Normal: ............. < 150 mg/dL Borderline High: .... 150-199 mg/dL High: ............... 200-499 mg/dL Very High: .......... > 500 mg/dL * Source: National Cholesterol Education Program (NCEP) 6 Reference Guidelines*: Low HDL: ..... < 40 mg/dL Normal: ..... 40-60 mg/dL Desirable: ... > 60 mg/dL *The National Cholesterol Education Program(NCEP) 7 Reference Guidelines*: Optimal:........... <100 mg/dL Near Optimal....... 100-129 mg/dL Borderline High.... 130-159 mg/dL High............... 160-189 mg/dL Very High.......... >=190 mg/dL * Source: National Cholesterol Education Program (NCEP) 8 Elevated levels of HbA1c suggest the need for more aggressive treatment of glycemia. The [place] [employer] recommends that a primary goal of therapy should be a HbA1c of <7% and that physicians should re-evaluate the treatment regimen in patients with HbA1c values consistently >8%. 9 E87.6 R53.82 10 Note: Persistent reduction for 3 months or more in an eGFR <60 mL/min/1.73 m2 defines CKD. Patients with eGFR values >/=60 mL/min/1.73 m2 may also have CKD if evidence of persistent proteinuria is present. The original MDRD equation for estimated GFR is not valid for patients less than 18 years of age. Additional information may be found at www.[email or web address]. 11 AC RESP FAILURE,PNEUMONIA 12 Note: Persistent reduction for 3 months or more in an eGFR <60 mL/min/1.73 m2 defines CKD. Patients with eGFR values >/=60 mL/min/1.73 m2 may also have CKD if evidence of persistent proteinuria is present. The original MDRD equation for estimated GFR is not valid for patients less than 18 years of age. Additional information may be found at www.[email or web address]. 13 AC RESP FAILURE, PNEUMONIA 14 Presumptive negative for L. pneumophila serogroup 1 antigen in urine, suggesting no recent or current infection. Legionnaires' disease cannot be ruled out since other serogroups and species may also cause disease. Performed at: [facility] [id number] Bellows Assembler: Vladislav Alex MD, Phone: [phone] 15 AC RESP FAILURE,PNEUMONIA 16 Elevated levels of HbA1c suggest the need for more aggressive treatment of glycemia. The [place] [employer] recommends that a primary goal of therapy should be a HbA1c of <7% and that physicians should re-evaluate the treatment regimen in patients with HbA1c values consistently >8%. 17 AC RESP FAILURE, PNEUMONIA 18 Legionella Species Culture Report: No Legionella species isolated. Performed at: RN - [facility] [address] [id number] Bellows Assembler: Hillary Turpin MD, Phone: [phone] 19 NO GROWTH: FINAL REPORT 20 NO GROWTH: FINAL REPORT 21 NO GROWTH: FINAL REPORT 22 NO GROWTH: FINAL REPORT 23 SOB; SENT OVER BY DR WARREN; OXYGEN 80 24 Tests: BNP Instructions: 25 Note: Persistent reduction for 3 months or more in an eGFR <60 mL/min/1.73 m2 defines CKD. Patients with eGFR values >/=60 mL/min/1.73 m2 may also have CKD if evidence of persistent proteinuria is present. The original MDRD equation for estimated GFR is not valid for patients less than 18 years of age. Additional information may be found at www.[email or web address]. 26 Values below the stated reference ranges of AST and ALT can be seen in normal populations. Clinical correlation is suggested. 27 BNP ADDED AT 1536 PER PATIENT REGISTRATION MANAGER.DG 28 0.0 - 0.045 ng/mL: Normal 0.046 - 0.5 ng/mL: Suggestive 0.6 - 1.5 ng/mL: Consistent 29 Instrument flagged sample for slide review. Less than 10% Bands seen, no other immature WBC's seen. RBC morphology essentially normal. Platelet estimate=NORMAL 30 BNP ADDED AT 1536 PER PATIENT REGISTRATION MANAGER.DG 31 [id number] 32 Please note: The following may produce a false positive D Dimer test: - Rheumatoid factor greater than 60 IU/ml - Plasma hemoglobin greater than 0.05 gm/dl - Bilirubin greater than 50 mg/dl - Lipids greater than 1000 mg/dl - FDP greater than 20 ug/ml 33 I10 E11.9 E78.5 34 Note: Persistent reduction for 3 months or more in an eGFR <60 mL/min/1.73 m2 defines CKD. Patients with eGFR values >/=60 mL/min/1.73 m2 may also have CKD if evidence of persistent proteinuria is present. The original MDRD equation for estimated GFR is not valid for patients less than 18 years of age. Additional information may be found at www.[email or web address]. 35 Values below the stated reference ranges of AST and ALT can be seen in normal populations. Clinical correlation is suggested. 36 Reference Guidelines*: Desirable: ........... < 200 mg/dL Borderline High: ..... 200-239 mg/dL High: ................ >=240 mg/dL * The National Cholesterol Education Program (NCEP) 37 Reference Guidelines*: Normal: ............. < 150 mg/dL Borderline High: .... 150-199 mg/dL High: ............... 200-499 mg/dL Very High: .......... > 500 mg/dL * Source: National Cholesterol Education Program (NCEP) 38 Reference Guidelines*: Low HDL: ..... < 40 mg/dL Normal: ..... 40-60 mg/dL Desirable: ... > 60 mg/dL *The National Cholesterol Education Program(NCEP) 39 Reference Guidelines*: Optimal:........... <100 mg/dL Near Optimal....... 100-129 mg/dL Borderline High.... 130-159 mg/dL High............... 160-189 mg/dL Very High.......... >=190 mg/dL * Source: National Cholesterol Education Program (NCEP) 40 Elevated levels of HbA1c suggest the need for more aggressive treatment of glycemia. The [place] [employer] recommends that a primary goal of therapy should be a HbA1c of <7% and that physicians should re-evaluate the treatment regimen in patients with HbA1c values consistently >8%. 41 Z01.419 42 Hard copy of report to be sent by mail Report may be viewed in Clinical Review, or in PCI under Medical Record Forms 43 E11.9 E78.5 I10 44 Note: Persistent reduction for 3 months or more in an eGFR <60 mL/min/1.73 m2 defines CKD. Patients with eGFR values >/=60 mL/min/1.73 m2 may also have CKD if evidence of persistent proteinuria is present. The original MDRD equation for estimated GFR is not valid for patients less than 18 years of age. Additional information may be found at www.[email or web address]. 45 Values below the stated reference ranges of AST and ALT can be seen in normal populations. Clinical correlation is suggested. 46 Reference Guidelines*: Desirable: ........... < 200 mg/dL Borderline High: ..... 200-239 mg/dL High: ................ >=240 mg/dL * The National Cholesterol Education Program (NCEP) 47 Reference Guidelines*: Normal: ............. < 150 mg/dL Borderline High: .... 150-199 mg/dL High: ............... 200-499 mg/dL Very High: .......... > 500 mg/dL * Source: National Cholesterol Education Program (NCEP) 48 Reference Guidelines*: Low HDL: ..... < 40 mg/dL Normal: ..... 40-60 mg/dL Desirable: ... > 60 mg/dL *The National Cholesterol Education Program(NCEP) 49 Reference Guidelines*: Optimal:........... <100 mg/dL Near Optimal....... 100-129 mg/dL Borderline High.... 130-159 mg/dL High............... 160-189 mg/dL Very High.......... >=190 mg/dL * Source: National Cholesterol Education Program (NCEP) 50 Elevated levels of HbA1c suggest the need for more aggressive treatment of glycemia. The [place] [employer] recommends that a primary goal of therapy should be a HbA1c of <7% and that physicians should re-evaluate the treatment regimen in patients with HbA1c values consistently >8%. 51 CHEST PAIN 52 Note: Persistent reduction for 3 months or more in an eGFR <60 mL/min/1.73 m2 defines CKD. Patients with eGFR values >/=60 mL/min/1.73 m2 may also have CKD if evidence of persistent proteinuria is present. The original MDRD equation for estimated GFR is not valid for patients less than 18 years of age. Additional information may be found at www.kdoqi.org. 53 Values below the stated reference ranges of AST and ALT can be seen in normal populations. Clinical correlation is suggested. 54 0.0 - 0.045 ng/mL: Normal 0.046 - 0.5 ng/mL: Suggestive 0.6 - 1.5 ng/mL: Consistent 55 Vitamin D deficiency has been defined by the [place] [employer] and an Endocrine Society practice guideline as a level of serum 25-OH vitamin D less than 20 ng/mL (1,2). The Endocrine Society went on to further define vitamin D insufficiency as a level between 21 and 29 ng/mL (2). 1. IOM ([place] [employer]). 2010. Dietary reference intakes for calcium and D. [place]: The National Academies Press. 2. Bárbara MF, Shadia ACOSTA, Cezar BARTON, et al. Evaluation, treatment, and prevention of vitamin D deficiency: an Endocrine Society clinical practice guideline. JCEM. 2010; 96(7):1911-30. Performed at: RN - [facility] [address] [id number] Bellows Assembler: Hillary Turpin MD, Phone: [phone] 56 Note: Persistent reduction for 3 months or more in an eGFR <60 mL/min/1.73 m2 defines CKD. Patients with eGFR values >/=60 mL/min/1.73 m2 may also have CKD if evidence of persistent proteinuria is present. The original MDRD equation for estimated GFR is not valid for patients less than 18 years of age. Additional information may be found at www.kdoqi.org. 57 Values below the stated reference ranges of AST and ALT can be seen in normal populations. Clinical correlation is suggested. 58 Elevated levels of HbA1c suggest the need for more aggressive treatment of glycemia. The [place] [employer] recommends that a primary goal of therapy should be a HbA1c of <7% and that physicians should re-evaluate the treatment regimen in patients with HbA1c values consistently >8%. 59 Reference Guidelines*: Desirable: ........... < 200 mg/dL Borderline High: ..... 200-239 mg/dL High: ................ >=240 mg/dL * The National Cholesterol Education Program (NCEP) 60 Reference Guidelines*: Normal: ............. < 150 mg/dL Borderline High: .... 150-199 mg/dL High: ............... 200-499 mg/dL Very High: .......... > 500 mg/dL * Source: National Cholesterol Education Program (NCEP) 61 Reference Guidelines*: Low HDL: ..... < 40 mg/dL Normal: ..... 40-60 mg/dL Desirable: ... > 60 mg/dL *The National Cholesterol Education Program(NCEP) 62 Reference Guidelines*: Optimal:........... <100 mg/dL Near Optimal....... 100-129 mg/dL Borderline High.... 130-159 mg/dL High............... 160-189 mg/dL Very High.......... >=190 mg/dL * Source: National Cholesterol Education Program (NCEP) 63 0.0 - 0.045 ng/mL: Normal 0.046 - 0.5 ng/mL: Suggestive 0.6 - 1.5 ng/mL: Consistent 64 05/06/15 LAB.RAP PER CANCELLATION REQUEST "NOT 65 PER CANCELLATION REQUEST "NOT INDICATED" 66 Note: Persistent reduction for 3 months or more in an eGFR <60 mL/min/1.73 m2 defines CKD. Patients with eGFR values >/=60 mL/min/1.73 m2 may also have CKD if evidence of persistent proteinuria is present. The original MDRD equation for estimated GFR is not valid for patients less than 18 years of age. Additional information may be found at www.kdoqi.org. 67 Values below the stated reference ranges of AST and ALT can be seen in normal populations. Clinical correlation is suggested. 68 Vitamin D deficiency has been defined by the [place] [employer] and an Endocrine Society practice guideline as a level of serum 25-OH vitamin D less than 20 ng/mL (1,2). The Endocrine Society went on to further define vitamin D insufficiency as a level between 21 and 29 ng/mL (2). 1. IOM ([place] [employer]). 2010. Dietary reference intakes for calcium and D. [place]: The National Academies Press. 2. Bárbara MF, Shadia ACOSTA, Cezar BARTON, et al. Evaluation, treatment, and prevention of vitamin D deficiency: an Endocrine Society clinical practice guideline. JCEM. 2010; 96(7):1911-30. Performed at: RN - [facility] [address] [id number] Bellows Assembler: Hillary Turpin MD, Phone: [phone] 69 Elevated levels of HbA1c suggest the need for more aggressive treatment of glycemia. The [place] [employer] Association recommends that a primary goal of therapy should be a HbA1c of <7% and that physicians should re-evaluate the treatment regimen in patients with HbA1c values consistently >8%. 70 Reference Guidelines*: Desirable: ........... < 200 mg/dL Borderline High: ..... 200-239 mg/dL High: ................ >=240 mg/dL * The National Cholesterol Education Program (NCEP) 71 Reference Guidelines*: Normal: ............. < 150 mg/dL Borderline High: .... 150-199 mg/dL High: ............... 200-499 mg/dL Very High: .......... > 500 mg/dL * Source: National Cholesterol Education Program (NCEP) 72 Reference Guidelines*: Low HDL: ..... < 40 mg/dL Normal: ..... 40-60 mg/dL Desirable: ... > 60 mg/dL *The National Cholesterol Education Program(NCEP) 73 Reference Guidelines*: Optimal:........... <100 mg/dL Near Optimal....... 100-129 mg/dL Borderline High.... 130-159 mg/dL High............... 160-189 mg/dL Very High.......... >=190 mg/dL * Source: National Cholesterol Education Program (NCEP) 74 Therapeutic target for the treatment of diabetes Mellitus patients is <7 % HBA1C, and in selective patients <6.0%.Please refer to [place] [employer] Association Diabetic care guidelines for further information. 75 Because ethnic data is not always readily available, this report includes an eGFR for both -Americans and non- Americans. The National Kidney Disease Education Program (NKDEP) does not endorse the use of the MDRD equation for patients that are not between the ages of 18 and 70, are , have extremes of body size, muscle mass, or nutritional status, or are non- or non-. According to the National Kidney Foundation, irrespective of diagnosis, the stage of the disease is based on the level of kidney function: Stage Description GFR(mL/min/1.73 m(2)) 1 Kidney damage with normal or decreased GFR 90 2 Kidney damage with mild decrease in GFR 60- 89 3 Moderate decrease in GFR 30-59 4 Severe decrease in GFR 15-29 5 Kidney failure <15 (or dialysis) 76 HDL Interpretation: Undesirable: High Risk: Less than 40 mg/dL Desirable: Low Risk: Greater than 60 mg/dL 77 LDL Interpretation: Low Risk Optimal Level: LDL Less than 100 mg/dL Near or Above Optimal: LDL 100-129 mg/dL Borderline High Risk: LDL 130-159 mg/dL High Risk : LDL 160-189 mg/dL Very High Risk: LDL Greater than 189 mg/dL 78 -- REFERENCE VALUE -- 25-HYDROXY D TOTAL (D2+D3) Optimum levels in the healthy population are 20-50, patients with bone disease may benefit from higher levels within this range. Test Performed by: [address] [id number] [employer] Associate: Sony Cárdenas III, M.D. 79 Negative <1:80 Borderline 1:80 Positive >1:80 80 Negative <0.91 Equivocal 0.91 - 1.09 Positive >1.09 Note: The CDC currently advises that Western blot testing be performed following all equivocal or positive EIA results. Final diagnosis should include appropriate clinical findings and a positive EIA which is also positive by Western blot. Performed at: - [facility] [id number] Bellows Assembler: Vladislav Alex MD, Phone: [phone] Performed at: - [facility] [id number] Bellows Assembler: Hillary Turpin MD, Phone: [phone] 81 A positive CECILIA result may occur in healthy individuals or be associated with a variety of diseases. See interpre- tation below: Pattern Antigen Detected Suggested Disease Association ------- --------- Homogeneous DNA(ds,ss,), High titers - SLE (Smooth) Histone - Speckled Sm, ROCK [employer]ATOR, SCL-70, SLE,MCTD,Sclerode rma,Sjogrens SS-A/SS-B ---- Nucleolar SCL-70, PM-1/SCL High titers Scleroderma Poly- myositis/ Scleroderma Overlap ----- Centromere Centromere PSS w/Crest syndrome variable 02/10/13 (SatFeb 10) 08:33 AM YVETTE COSME will review with pt at /u 82 QUERY: Is the Patient Fasting? Y 83 Vitamin D deficiency has been defined by the [place] [employer] and an Endocrine Society practice guideline as a level of serum 25-OH vitamin D less than 20 ng/mL (1,2). The Endocrine Society went on to further define vitamin D insufficiency as a level between 21 and 29 ng/mL (2). 1. IOM ([place] [employer]). 2010. Dietary reference intakes for calcium and D. [place]: The National Academies Press. 2. Bárbara MF, Shadia ACOSTA, Cezar BARTON, et al. Evaluation, treatment, and prevention of vitamin D deficiency: an Endocrine Society clinical practice guideline. JCEM. 2010; 96(7):1911-30. Performed at: RN - [facility] [address] [id number] Bellows Assembler: Hillary Turpin MD, Phone: [phone] 84 No lupus anticoagulant was detected. 85 reveiwed with Yvette Cosme who saw patient in and referred to worm packer 86 @Sample frozen by [id number] at 1959 on 01/30/13. 87 Test Performed by: [address] [address] [employer] Associate: Sony Cárdenas III, M.D. 88 OPERATION/PROCEDURE Gastroscopy DIAGNOSIS: PART 1: "DUODENUM, BIOPSIES": SMALL BOWEL MUCOSA WITHOUT SIGNIFICANT PATHOLOGICAL ABNORMALITY. NO EVIDENCE OF INCREASED INTRAEPITHELIAL LYMPHOCYTES NOR VILLOUS ATROPHY. PART 2: "STOMACH, BIOPSIES": REACTIVE GASTROPATHY. NO HELICOBACTER SEEN WITH SPECIAL STAIN. SYED/ zack GROSS Part 1; "DUODENAL BIOPSIES". The specimen is received in an appropriately labeled container. This contains three rounded stafford-pink colored pieces of soft tissue measuring up to 0.4 cm.; filtered and submitted in toto within a single cassette. Part 2; "STOAMCH BIOPSIES". The specimen is received in an appropriately labeled container. This contains three rounded stafford-pink colored pieces of soft tissue measuring up to 0.3 cm.; filtered and submitted in toto within a single cassette. JW/clf MICROSCOPIC Part 1: Sections reveal villiform mucosa with well-oriented crypts, with normal maturation of lining cells to the surface. The stroma contains a normal degree of lymphoplasmacytic infiltration. There is no evidence of increased intraepithelial lymphocytes nor villous atrophy. Part 2: Sections show glandular elongation, tortuosity, and hypercellularity of gastric pits, foveolar hyperplasia, and villiform transformation of the mucosa. The glands appear more angular than usual. Foveolar cells show mild mucin depletion and vacuolization. There is capillary congestion, vasodilatation and edema. Smooth muscle MICROSCOPIC (Continued) fibers extend high into the lamina propria. There are interstitial chronic inflammatory cells. There are no Helicobacter-type bacteria identified with Warthin-Starry staining. The controls are adequate. PRE OPERATIVE DIAGNOSIS Epigastric pain, vomiting REVIEW CODE CODE: I ---- AMADOR Fisher MD 11/28/12 1354 ---- 89 Therapeutic target for the treatment of diabetes Mellitus patients is <7 % HBA1C, and in selective patients <6.0%.Please refer to [place] Diabetes Association Diabetic care guidelines for further information. 90 Because ethnic data is not always readily available, this report includes an eGFR for both -Americans and non- Americans. The National Kidney Disease Education Program (NKDEP) does not endorse the use of the MDRD equation for patients that are not between the ages of 18 and 70, are , have extremes of body size, muscle mass, or nutritional status, or are non- or non-. According to the National Kidney Foundation, irrespective of diagnosis, the stage of the disease is based on the level of kidney function: Stage Description GFR(mL/min/1.73 m(2)) 1 Kidney damage with normal or decreased GFR 90 2 Kidney damage with mild decrease in GFR 60- 89 3 Moderate decrease in GFR 30-59 4 Severe decrease in GFR 15-29 5 Kidney failure <15 (or dialysis) 91 It is recognized that currently available assays for the detection of antibodies to HIV-1 and/or HIV-2 may not detect all infected individuals. HIV antibodies may be undetectable in some stages of the infection and in some clinical conditions. The performance of this assay has not been established for populations of infants or children. Assayed by Chemiluminescence Microparticle Immunoassay on the Siemens Advia Centaur CP. Values obtained with different methods or kits cannot be used interchangeably.The diagnostic specificity of the ADVIA Centaur 1/O/2 Enhanced assay in the low risk population was 99.90% (6052/6058) with a 95% confidence interval of 99.78 to 99.96%. 92 HDL Interpretation: Undesirable: High Risk: Less than 40 mg/dL Desirable: Low Risk: Greater than 60 mg/dL 93 LDL Interpretation: Low Risk Optimal Level: LDL Less than 100 mg/dL Near or Above Optimal: LDL 100-129 mg/dL Borderline High Risk: LDL 130-159 mg/dL High Risk : LDL 160-189 mg/dL Very High Risk: LDL Greater than 189 mg/dL 94 Because ethnic data is not always readily available, this report includes an eGFR for both -Americans and non- Americans. The National Kidney Disease Education Program (NKDEP) does not endorse the use of the MDRD equation for patients that are not between the ages of 18 and 70, are , have extremes of body size, muscle mass, or nutritional status, or are non- or non-. According to the National Kidney Foundation, irrespective of diagnosis, the stage of the disease is based on the level of kidney function: Stage Description GFR(mL/min/1.73 m(2)) 1 Kidney damage with normal or decreased GFR 90 2 Kidney damage with mild decrease in GFR 60- 89 3 Moderate decrease in GFR 30-59 4 Severe decrease in GFR 15-29 5 Kidney failure <15 (or dialysis) 95 Results with Index Values of <18.00 are negative. For research use only Test Performed by: [address] [address] [employer] Associate: Sony Cárdenas III, M.D. 96 Results with Index Values of <36.00 are negative. For research use only 97 -- REFERENCE VALUE -- <0.75 (Negative) 0.75-0.99 (Equivocal) >=1.00 (Positive) 98 HDL Interpretation: Undesirable: High Risk: Less than 40 MG/DL Desirable: Low Risk: Greater than 60 MG/DL 99 LDL Interpretation: Low Risk Optimal Level: LDL Less than 100 MG/DL Near or Above Optimal: LDL 100-129 MG/DL Borderline High Risk: LDL 130-159 MG/DL High Risk : LDL 160-189 MG/DL Very High Risk: LDL Greater than 189 MG/DL 100 RUN DATE: 03/28/12 [facility] LIVE PAGE 1 RUN TIME: 1056 [address] [address] Specimen Inquiry ---- Name: JAYLIN DIXON : [address]: Gera JUDGE, Trevor Nagel Acct: [id number] Unit: [id number] AGE: 46 Location: [facility] Re03/25/12 SEX: F Status: DEP ER ---- SPEC: [id number] АЛЕКСАНДР: 03/25/12 [facility] DR: Daniella Flowers NP REQ: [id number] RECD: 03/26/12 STATUS: ROSALINA KAN DR: Yvette Cosme , PATIENT REGISTRATION MANAGER Gera JUDGE,Trevor Nagel _ SOURCE: URINE SPDESC: ORDERED: Urine Culture COMMENTS: Comment: collected by [id number] ---- Procedure Result Verified Site ---- Urine Culture Final 03/28/12-1056 ML Organism 1 NORMAL SOFIA [place] Count 10-25,000 (Moderate) CFU/ML ---- END OF REPORT * ML=Testing performed at Main Lab DEPARTMENT OF PATHOLOGY, [address] [place] [address] Duy Wilson M.D. Director [facility] Permit # [id number] 101 Therapeutic target for the treatment of diabetes Mellitus patients is < 7% HBA1C, and in selective patients <6.0%.Please refer to [place] Diabetes Association Diabetic care guidelines for further information. 102 CBC and smear reviewed. Inverted PMN/lymph ratio noted. No blasts seen. REVIEWED BY DUY WILSON MD 103 Because ethnic data is not always readily available, this report includes an eGFR for both -Americans and non- Americans. The National Kidney Disease Education Program (NKDEP) does not endorse the use of the MDRD equation for patients that are not between the ages of 18 and 70, are , have extremes of body size, muscle mass, or nutritional status, or are non- or non-. According to the National Kidney Foundation, irrespective of diagnosis, the stage of the disease is based on the level of kidney function: Stage Description GFR(mL/min/1.73 m(2)) 1 Kidney damage with normal or decreased GFR 90 2 Kidney damage with mild decrease in GFR 60- 89 3 Moderate decrease in GFR 30-59 4 Severe decrease in GFR 15-29 5 Kidney failure <15 (or dialysis) 104 A metabolite of Naproxen, O-desmethylnaproxen, has been shown to interfere with the Jendrassik-Bee[place] method for measuring total bilirubin. Samples from patients who have taken Naproxen have shown spurious elevation in total bilirubin levels. 105 Desirable: Less than 200 MG/DL Borderline-High Risk: 200-239 MG/DL High- Risk: 240 MG/DL and over 106 HDL Interpretation: Undesirable: High Risk: Less than 40 MG/DL Desirable: Low Risk: Greater than 60 MG/DL 107 Microalbuminuria in a random sample is defined as: Microalbumin/ Creatinine ratio of 30-299 ug/mg. 108 ------- RUN DATE: 11/24/11 [facility] NMI LIVE PAGE 1 RUN TIME: 1252 Specimen Inquiry RUN USER: INTERFACE ---- Name: JAYLIN DIXON Jah Status: REG REF Re Age/Sex: 46/F Unit#: [id number] Location: : 65 ---- SPEC #: [id number] АЛЕКСАНДР: 11/22/11 STATUS: COMP REQ #: [id number] RECD: 11/22/[address]: Yvette Cosme NP SOURCE: URINE ENTR: 11/22/[address]: SPDES: ORDERED: URINE C S QUERIES: MEDENT REQUISITION # [id number] SPECIMEN DESCRIPTION: URINE, RANDOM ACT WKST: UR 11/24/11 #1 ---- Procedure Result Verified Site ---- > URINE CULTURE SENSITIVI Final 11/24/11-1252 ML FINAL: NO GROWTH DAY 2 (<1,000 CFU/mL) ---- ML - [facility] Permit #[id number] [address] [place] [address] ---- DEPARTMENT OF PATHOLOGY, [address] [place] [address] [facility] Permit #[id number] Duy Wilson M.D. Director Forrest Flores M.D. [employer] Painting ---- 109 Anion gap measurement may be of limited value in the presence of any alkalosis, especially in a combined acid base disorder. . 110 A metabolite of Naproxen, O-desmethylnaproxen, has been shown to interfere with the Jendrassik-Bee[place] method for measuring total bilirubin. Samples from patients who have taken Naproxen have shown spurious elevation in total bilirubin levels. 111 Because ethnic data is not always readily available, this report includes an eGFR for both -Americans and non- Americans. The National Kidney Disease Education Program (NKDEP) does not endorse the use of the MDRD equation for patients that are not between the ages of 18 and 70, are , have extremes of body size, muscle mass, or nutritional status, or are non- or non-. According to the National Kidney Foundation, irrespective of diagnosis, the stage of the disease is based on the level of kidney function: Stage Description GFR(mL/min/1.73 m(2)) 1 Kidney damage with normal or decreased GFR 90 2 Kidney damage with mild decrease in GFR 60- 89 3 Moderate decrease in GFR 30-59 4 Severe decrease in GFR 15-29 5 Kidney failure <15 (or dialysis) 112 THERAPEUTIC TARGET FOR THE TREATMENT OF DIABETES MELLITUS PATIENTS IS < 7% HBA1C, AND IN SELECTIVE PATIENTS <6.0%. PLEASE REFER TO [place] DIABETES ASSOCIATION DIABETIC CARE GUIDELINES FOR FURTHER INFORMATION. 113 THERAPEUTIC TARGET FOR THE TREATMENT OF DIABETES MELLITUS PATIENTS IS < 7% HBA1C, AND IN SELECTIVE PATIENTS <6.0%. PLEASE REFER TO [place] DIABETES ASSOCIATION DIABETIC CARE GUIDELINES FOR FURTHER INFORMATION. 114 Anion gap measurement may be of limited value in the presence of any alkalosis, especially in a combined acid base disorder. . 115 A metabolite of Naproxen, O-desmethylnaproxen, has been shown to interfere with the Jendrassik-B[place] method for measuring total bilirubin. Samples from patients who have taken Naproxen have shown spurious elevation in total bilirubin levels. 116 Because ethnic data is not always readily available, this report includes an eGFR for both -Americans and non- Americans. The National Kidney Disease Education Program (NKDEP) does not endorse the use of the MDRD equation for patients that are not between the ages of 18 and 70, are , have extremes of body size, muscle mass, or nutritional status, or are non- or non-. According to the National Kidney Foundation, irrespective of diagnosis, the stage of the disease is based on the level of kidney function: Stage Description GFR(mL/min/1.73 m(2)) 1 Kidney damage with normal or decreased GFR 90 2 Kidney damage with mild decrease in GFR 60- 89 3 Moderate decrease in GFR 30-59 4 Severe decrease in GFR 15-29 5 Kidney failure <15 (or dialysis) 117 CHOLESTEROL INTERPRETATION: Desirable: Less than 200 MG/DL Borderline- High Risk: 200-239 MG/DL High-Risk: 240 MG/DL and over 118 HDL INTERPRETATION: Undesirable: High Risk: Less than 40 MG/DL Desirable: Low Risk: Greater than 60 MG/DL 119 LDL INTERPRETATION: Low Risk Optimal Level: LDL Less than 100 MG/DL Near or Above Optimal: LDL 100-129 MG/DL Borderline High Risk: LDL 130-159 MG/DL High Risk : LDL 160-189 MG/DL Very High Risk: LDL Greater than 189 MG/DL 120 Please note updated reference range, effective 11/17/09 121 ------- RUN DATE: 07/19/11 [facility] NMI LIVE PAGE 1 RUN TIME: 1045 Specimen Inquiry RUN USER: INTERFACE ---- Name: JAYLIN DIXON Accana#: [id number] Status: REG REF Re Age/Sex: 45/F Unit#: [id number] Location: [facility] : 65 ---- SPEC #: [id number] АЛЕКСАНДР: 07/17/11 STATUS: COMP REQ #: [id number] RECD: 07/17/[address]: Yvette Cosme NP SOURCE: STOOL ENTR: 07/17/[address]: [facility]: ORDERED: STOOL CULTURE, O P: FENG/JEANETH QUERIES : MEDENT REQUISITION # [id number] ACT WKST: B 07/19/11 #1 ---- Procedure Result Verified Site ---- > STOOL CULT SENSITIVITY Final 07/19/11-1044 ML NEGATIVE FOR THE ENTERIC PATHOGENS - SALMONELLA, SHIGELLA, AEROMONAS, PLESIOMONAS AND YERSINIA. VIBRIO AND E. COLI 0157 NOT ROUTINELY TESTED FOR IN A STOOL CULTURE. PLEASE SUBMIT SAMPLE WITH SPECIFIC REQUEST FOR DESIRED ORGANISM(S). > STOOL SPECIMEN DESCRIPTION Final 07/18/11-0723 ML STOOL COLOR DARK BROWN STOOL FORM SEMI- FORMED STOOL CONSISTENCY SOFT > CAMPYLOBACTER CULTURE Final 07/19/11-1044 ML NO GROWTH OF CAMPYLOBACTER AFTER 48 HOURS > SHIGA TOXIN 1 AND 2 (EHEC) Final 07/18/11-1222 ML SHIGA TOXIN 1 NEGATIVE BY IMMUNOCHROMATOGRAPHIC ASSAY SHIGA TOXIN 2 NEGATIVE BY IMMUNOCHROMATOGRAPHIC ASSAY > O P: GIARDIA/CRYPTO SCREEN Final 07/18/11-1418 ML GIARDIA ANTIGEN NEGATIVE BY IMMUNOASSAY CRYPTOSPORIDIUM ANTIGEN NEGATIVE BY IMMUNOASSAY Giardia and cryptosporidium antigen testing performed by immunoassay. If patient is immunocompromised or has traveled to or is from a developing country, a full ova and parasite exam with microscopic (OPMIC) is recommended. All samples will be held one month in case full ova and parasite testing is requested. Contact the Microbiology Department at [phone]. TEST LIMITATIONS: As with all diagnostic procedures, the results obtained should be used in conjunction with other clinical information available the physician. Negative results can ---- DEPARTMENT OF PATHOLOGY, [address] [place] [address] [facility] Permit #[id number] Samantha Garcia M.D. [employer]orator Painting ---- ---- RUN DATE: 07/19/11 [facility] NMI LIVE PAGE 2 RUN TIME: 1045 Specimen Inquiry RUN USER: INTERFACE ---- Name: JAYLIN DIXON Status: REG REF Re Age/Sex: 45/F Unit#: [id number] Location: [facility] : 65 -- -- CONTINU ED ---- ---- Procedure Result Verified Site ---- O P: GIARDIA/CRYPTO SCREEN Final (continued) 07/18/11-1418 occur in samples containing antigen below lower limits of detection of the assay. The use of colonic washes, aspirates or other diluted sample types has not been established and could affect the performance of the assay. Stool samples contaminated with an oily or particulate base (eg. Barium, mineral oil etc.) could interfere with the test and are not recommended. ---- [facility] Permit #[id number] [address] [place] [address] ---- DEPARTMENT OF PATHOLOGY, [address] [place] [address] [facility] Permit #[id number] Duy Wilson M.D. Director Forrest Flores M.D. [employer] Decorator Painting ---- 122 Please note updated reference range, effective 11/17/09 123 CHOLESTEROL INTERPRETATION: Desirable: Less than 200 MG/DL Borderline- High Risk: 200-239 MG/DL High-Risk: 240 MG/DL and over 124 HDL INTERPRETATION: Undesirable: High Risk: Less than 40 MG/DL Desirable: Low Risk: Greater than 60 MG/DL 125 LDL INTERPRETATION: Low Risk Optimal Level: LDL Less than 100 MG/DL Near or Above Optimal: LDL 100-129 MG/DL Borderline High Risk: LDL 130-159 MG/DL High Risk : LDL 160-189 MG/DL Very High Risk: LDL Greater than 189 MG/DL 126 Imm. [place] 1 127 Anion gap measurement may be of limited value in the presence of any alkalosis, especially in a combined acid base disorder. . 128 A metabolite of Naproxen, O-desmethylnaproxen, has been shown to interfere with the Jendrassik-Bala method for measuring total bilirubin. Samples from patients who have taken Naproxen have shown spurious elevation in total bilirubin levels. 129 Because ethnic data is not always readily available, this report includes an eGFR for both -Americans and non- Americans. The National Kidney Disease Education Program (NKDEP) does not endorse the use of the MDRD equation for patients that are not between the ages of 18 and 70, are , have extremes of body size, muscle mass, or nutritional status, or are non- or non-. According to the National Kidney Foundation, irrespective of diagnosis, the stage of the disease is based on the level of kidney function: Stage Description GFR(mL/min/1.73 m(2)) 1 Kidney damage with normal or decreased GFR 90 2 Kidney damage with mild decrease in GFR 60- 89 3 Moderate decrease in GFR 30-59 4 Severe decrease in GFR 15-29 5 Kidney failure <15 (or dialysis) 130 THERAPEUTIC TARGET FOR THE TREATMENT OF DIABETES MELLITUS PATIENTS IS < 7% HBA1C, AND IN SELECTIVE PATIENTS <6.0%. PLEASE REFER TO [place] DIABETES ASSOCIATION DIABETIC CARE GUIDELINES FOR FURTHER INFORMATION. 131 OPERATION/PROCEDURE Wide excision of skin cancer from right groin. DIAGNOSIS: "SKIN, RIGHT GROIN, EXCISION": XAVIER'S DISEASE, (SQUAMOUS CELL CARCINOMA IN-SITU), SEE COMMENT. NO MALIGNANCY NOTED AT EDGES OF RESECTION. Daisy INTERPRETATION COMMENT This case was reviewed by Dr. 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 skin ellipse with a subcutaneous tissue measuring 0.7 cm. in thickness. On the surface of the skin there are two stafford-brown macules measuring 0.3 and 0.5 cm. in greatest dimension. The medial margin is said to be inked purple, and is designated as the 3:00 side. The 3:00 side margin is inked black. The 12:00-9:00 margin is inked blue and the 9:00-6:00 margin is inked green. The specimen is serially sectioned and submitted in toto in one block. JW/clf MICROSCOPIC Sections show a flat, acanthotic expansion of epidermis. Most of the squamous cells within this area are large with eosinophilic cytoplasm, and marked nuclear pleomorphism. The advancing margin is irregular, without definitive evidence of invasive disease, but with many melanophages. Atypical cells with clear cytoplasm are seen in upper epidermis and corneal layer. Immunohistochemistry studies were performed at [facility] and interpreted at [facility]. These cells are positive for HMB45 and negative for CK5/6. Controls are adequate. No malignancy is noted at the edges of resection. PRE OPERATIVE DIAGNOSIS Squamous cell carcinoma, skin. REVIEW CODE CODE: I AMADOR Fisher MD 1410 132 OPERATION/PROCEDURE Punch biopsy DIAGNOSIS: "LESION, RIGHT INNER GROIN, PUNCH BIOPSY": XAVIER'S DISEASE, (SQUAMOUS CELL CARCINOMA IN-SITU), INVOLVING PERIPHERAL EDGE. Daisy GROSS Received in formalin labeled, "RIGHT INNER GROIN SKIN LESION" is a punch biopsy of stafford, rubbery skin measuring 0.3 cm. in diameter and 0.4 cm. in depth. The skin has a dark brown discoloration. The margins are inked, the specimen is submitted in toto in one block. SYED/zack MICROSCOPIC Sections show inward expansion of basaloid epidermis. Most of the squamous cells within this area are large with nuclear pleomorphism. Mitosis is seen at mid to upper level of the epidermis. The advancing margin is irregular, without definitive evidence of invasive disease, but with a brisk dermal inflammatory response. PRE OPERATIVE DIAGNOSIS Right inner groin lesion, large and growing. REVIEW CODE CODE: I AMADOR Fisher MD 1323 133 THERAPEUTIC TARGET FOR THE TREATMENT OF DIABETES MELLITUS PATIENTS IS < 7% HBA1C, AND IN SELECTIVE PATIENTS <6.0%. PLEASE REFER TO [place] DIABETES ASSOCIATION DIABETIC CARE GUIDELINES FOR FURTHER INFORMATION. 134 Anion gap measurement may be of limited value in the presence of any alkalosis, especially in a combined acid base disorder. . 135 A metabolite of Naproxen, O-desmethylnaproxen, has been shown to interfere with the Jendrassik-[place] method for measuring total bilirubin. Samples from patients who have taken Naproxen have shown spurious elevation in total bilirubin levels. 136 Because ethnic data is not always readily available, this report includes an eGFR for both -Americans and non- Americans. The National Kidney Disease Education Program (NKDEP) does not endorse the use of the MDRD equation for patients that are not between the ages of 18 and 70, are , have extremes of body size, muscle mass, or nutritional status, or are non- or non-. According to the National Kidney Foundation, irrespective of diagnosis, the stage of the disease is based on the level of kidney function: Stage Description GFR(mL/min/1.73 m(2)) 1 Kidney damage with normal or decreased GFR 90 2 Kidney damage with mild decrease in GFR 60- 89 3 Moderate decrease in GFR 30-59 4 Severe decrease in GFR 15-29 5 Kidney failure <15 (or dialysis) 137 CHOLESTEROL INTERPRETATION: Desirable: Less than 200 MG/DL Borderline- High Risk: 200-239 MG/DL High-Risk: 240 MG/DL and over 138 HDL INTERPRETATION: Undesirable: High Risk: Less than 40 MG/DL Desirable: Low Risk: Greater than 60 MG/DL 139 LDL INTERPRETATION: Low Risk Optimal Level: LDL Less than 100 MG/DL Near or Above Optimal: LDL 100-129 MG/DL Borderline High Risk: LDL 130-159 MG/DL High Risk : LDL 160-189 MG/DL Very High Risk: LDL Greater than 189 MG/DL 140 Please note updated reference range, effective 11/17/09 141 OPERATION/PROCEDURE 1. Excision and cauterization 2. Excision DIAGNOSIS: PART 1: "SKIN, LEFT INDEX FINGER, EXCISION": VERRUCA VULGARIS. PART 2: "SKIN, LEFT FRONTAL FOREHEAD, EXCISION": IRRITATED SEBORRHEIC KERATOSIS. JT/clf 1234 GROSS The specimen is received in two parts in fixative. 1. The first part is labeled, "LEFT INDEX FINGER" said to be a wart. It consists of a very firm, raised, keratotic skin lesion, which is approximately 9 x 5 x 3 mms. Bisected and mounted entirely, labeled #1. 2. The second part is labeled, "LEFT FRONTAL FOREHEAD; PURPLE=UPPER MARGIN" . It consists of a skin ellipse measuring 14 x 7 x 3 mm. The surface demonstrates a poorly delimited, minimally raised central lesion a few mms in diameter. There appears to be some purple ink on one margin, henceforth referred to as the upper or 12:00 margin. That margin is now inked red. The specimen is then serially sectioned through he narrow dimension of the ellipse and mounted entirely in one block, labeled # 2. JT/clf PRE OPERATIVE DIAGNOSIS 1. Left index finger wart 2. Left side frontal forehead wart REVIEW CODE CODE: I Signed KEVIN JOHNSON MD 1429 142 THERAPEUTIC TARGET FOR THE TREATMENT OF DIABETES MELLITUS PATIENTS IS < 7% HBA1C, AND IN SELECTIVE PATIENTS <6.0%. PLEASE REFER TO [place]ATI DIABETES ASSOCIATION DIABETIC CARE GUIDELINES FOR FURTHER INFORMATION. 143 ICTOTEST IS A QUALITATIVE CONFIRMATORY TEST FOR BILIRUBIN. 144 Anion gap measurement may be of limited value in the presence of any alkalosis, especially in a combined acid base disorder. . 145 A metabolite of Naproxen, O-desmethylnaproxen, has been shown to interfere with the Jendrassik-[place] method for measuring total bilirubin. Samples from patients who have taken Naproxen have shown spurious elevation in total bilirubin levels. 146 Because ethnic data is not always readily available, this report includes an eGFR for both -Americans and non- Americans. The National Kidney Disease Education Program (NKDEP) does not endorse the use of the MDRD equation for patients that are not between the ages of 18 and 70, are , have extremes of body size, muscle mass, or nutritional status, or are non- or non-. According to the National Kidney Foundation, irrespective of diagnosis, the stage of the disease is based on the level of kidney function: Stage Description GFR(mL/min/1.73 m(2)) 1 Kidney damage with normal or decreased GFR 90 2 Kidney damage with mild decrease in GFR 60- 89 3 Moderate decrease in GFR 30-59 4 Severe decrease in GFR 15-29 5 Kidney failure <15 (or dialysis) 147 CHOLESTEROL INTERPRETATION: Desirable: Less than 200 MG/DL Borderline- High Risk: 200-239 MG/DL High-Risk: 240 MG/DL and over 148 HDL INTERPRETATION: Undesirable: High Risk: Less than 40 MG/DL Desirable: Low Risk: Greater than 60 MG/DL 149 LDL INTERPRETATION: Low Risk Optimal Level: LDL Less than 100 MG/DL Near or Above Optimal: LDL 100-129 MG/DL Borderline High Risk: LDL 130-159 MG/DL High Risk : LDL 160-189 MG/DL Very High Risk: LDL Greater than 189 MG/DL 150 MICROALBUMINURIA IN A RANDOM SAMPLE IS DEFINED : MICROALBUMIN/ CREATININE RATIO OF 30-299 ug/mg. . Procedures Date CPT Code Description Status Comment 01/23/2017 88348 Excision Of Warts Less Than 15 Completed 10/29/2016 50208 Arthroscopy w/meniscectomy Completed including meniscal shaving 10/09/2016 41066 Radiology, Knee 3 Views Completed 10/09/2016 17797 Asp./Injection major joint Completed 04/29/2016 Mammogram Completed Document: 05/21/16 - Screening Mammogram Bilateral 04/29/2016 Colonoscopy Completed Document: 05/10/16 - Operative Report repeat in 5 years 06/20/2015 31282 EKG-Tracing And Report Completed 06/13/2015 68432 Spirometry Completed 06/13/2015 17434 Bronchospasm Provocation Completed Evaluation Multi Spirometric Determinati 05/26/2015 55594 Eye Exam New Patient Completed Comprehensive 03/12/2013 19810 Pulse Oximetry Completed 11/26/2011 48418 EKG-Tracing And Report Completed 11/15/2011 59068 Pulse Oximetry Completed 11/15/2011 16944 Pressurized/Non-Pressurized Completed Inhalation Treatment,Acute Obstructio 05/31/2011 69459 Excise malig lesion, trunk, Completed arms or legs .5 cm or less 05/02/2011 34616 Biopsy Skin Lesion Completed 02/08/2011 77827 Exc.Other Nicola.Les/0.5cm or Completed less 02/08/2011 88953 Exc Benign Completed Lesion-Scalp,Neck,Hands,Feet 0.5CM Or Less 02/05/2011 17850 Event Monitor Inter/Review Completed Only 12/21/2008 43154 Stress Test Interpre And Completed Report Only 12/21/2008 21407 Stress Test Physician Super Completed Only Encounters Type Date Location Provider CPT E/M Dx Office Visit 08/27/2017 8:40a [place] [address] E11.9 I10 E78.5 R22.41 H66.92 J30.9 Office Visit 06/07/2017 9:20a [place] [address] J01.90 J06.9 Office Visit 01/23/2017 11:30a Family Medicine Chhaya Casas M.D. 62741 B07.9 Office Visit 01/11/2017 1:00p [place] [address] Z23 B07.9 E78.5 I10 Z23 R73.9 Office Visit 10/11/2016 1:45p Orthopaedic Office Scout Dumas M.D. 23232 M25.462 M23.222 Office Visit 10/09/2016 9:15a Orthopaedic Office Scout Dumas M.D. 47138 M25.562 M25.462 Office Visit 09/19/2016 11:40a [place] [address] E87.6 J18.9 M25.562 F17.210 B07.9 Office Visit 09/10/2016 1:00p [place] [address] J44.1 E11.9 E78.5 I10 Office Visit 06/21/2016 1:45p Family Medicine & NOHELIA Villegas G0438 Z01.419 [facility] Z01.419 Office Visit 06/13/2016 1:20p [place] [address] E78.5 E11.9 Z79.84 I10 G47.33 R23.9 Z86.001 Office Visit 02/29/2016 2:20p [place] [address] E11.9 I10 E11.9 E78.5 F41.9 M46.88 G47.33 R51 N39.46 Z23 Office Visit 11/28/2015 3:40p [place] [address] I10 E11.9 E78.5 F41.9 M46.88 Z23 Office Visit 08/12/2015 1:30p Primary Care Office [place] [facility] [address] J20.9 B35.9 Office Visit 08/01/2015 2:20p [place] [address] R06.02 I10 E78.5 F17.210 G47.33 G43.009 D22.9 Office Visit 06/20/2015 10:00a [place]iology [place] Chá[place] [address] R42 R06.02 R00.2 R07.2 E66.09 I10 E78.5 F17.210 G47.33 Office Visit 05/10/2015 9:20a [place] [address] J45.31 H66.92 E11.9 I10 E78.5 F17.210 Z71.6 Office Visit 04/27/2015 8:40a [place] [address] B35.9 G47.33 E11.9 E78.5 I10 R00.2 M46.88 Office Visit 05/14/2011 3:20p Surgical Office Harry Edward M.D. 60808 173.52 Office Visit 02/15/2011 2:00p Surgical Office Harry Edward M.D. 79676 V67.09 702.19 Office Visit 12/25/2010 10:45a Surgical Office Harry Edward M.D. 42882 078.10 700 Plan of Care Future Appointment(s):10/25/2017 8:30 am - Abdelrahman Olmos MD at [id number]/ 08/2018 8:45 am - Silverware Etcher at Primary Care [id number]/11/2017 11:00 am - Hanna Warren MD at Primary Care Zmfboo7209/11/2017 - Hanna Warren MDH66.92 Otitis media, unspecified, left earComments:-still with pain and opaque membrane- Augmentin 1 tab q12hrs x 10 daysJ44.1 Chronic obstructive pulmonary disease w ( acute) exacerbationNew Orders:Fraction of Exhaled Nitric Oxide (Feno)PFT With BronchodilatorComments:-Nebulizer [id number] prednisone 40mg daily x 5 days-Neb treatment given in office and had improvement in sx-Check CXR-once improves will check PFTS and Feno to get her on increased inhaler therapy to reduce exacerbationsAllNew Medication:Prednisone 20 mgAmoxicillin/Clavulanate Potassium 875-125 mg
[2017-10-05 13:06] VITALS: BP 124/76
--- NOTE | 2017-10-05 13:43 | UC ---
Eye Complaint HPI - HPI Summary HPI Summary: both eyes feel sany and irratated, no fb, clear drainage---also has sinus drainage - History of Current Complaint Hx Obtained From: Patient Hx Last Menstrual Period: 1998 ?: No Onset/Duration: Sudden Onset Severity Currently: None Pain Intensity: 0 Pain Scale Used: 0-10 Numeric Location of Injury: Conjunctiva Aggravating Factor(s): Nothing Alleviating Factor(s): Nothing Associated Signs And Symptoms: Positive: Drainage (Clear) <Daniella Flowers - Last Filed: 10/05/17 14:10> <Faina Hu - Last Filed: 10/07/17 07:27> - History of Current Complaint Chief Complaint: UCEye Stated Complaint: LEFT EYE COMPLAINT Time Seen by Provider: 10/05/17 13:36 - Allergies/Home Medications Allergies/Adverse Reactions: Allergies Allergy/AdvReac Type Severity Reaction Status Date / Time No Known Allergies Allergy Verified 09/07/16 16:35 PMH/Surg Hx/FS Hx/Imm Hx Previously Healthy: No Endocrine History: Dyslipidemia Cardiovascular History: Hypertension GI/ History: Gastroesophageal Reflux Psychological History: Depression - Surgical History Surgical History: Yes Surgery Procedure, Year, and Place: B/L foot surgery. HYSTERECTOMY. WRIST AND HAND SURGERY AFTER A FALL on right. [facility] - Family History Known Family History: Positive: Hypertension, Diabetes - Social History Occupation: Disabled Lives: With Family Alcohol Use: None Substance Use Type: None Smoking Status (MU): Heavy Every Day Tobacco Smoker Amount Used/How Often: 1 ppd Length of Time of Smoking/Using Tobacco: 15 years Have You Smoked in the Last Year: Yes <Daniella Flowers - Last Filed: 10/05/17 14:10> Review of Systems Constitutional: Negative Skin: Negative Eyes: Drainage, Eye Redness - left greater than right ENT: Negative Respiratory: Negative Cardiovascular: Negative Gastrointestinal: Negative Genitourinary: Negative Motor: Negative Neurovascular: Negative Musculoskeletal: Negative Neurological: Negative Psychological: Negative Is Patient Immunocompromised?: No All Other Systems Reviewed And Are Negative: Yes <Daniella Flowers - Last Filed: 10/05/17 14:10> Physical Exam Triage Information Reviewed: Yes Appearance: Well-Appearing, No Pain Distress, Well-Nourished Vital Signs: Initial Vital Signs Temp 97.6 F 10/05/17 13:02 Pulse 68 06/09/18 13:02 Resp 16 10/05/17 13:02 BP 124/76 10/05/17 13:02 Pulse Ox 98 10/05/17 13:02 Vital Signs Reviewed: Yes Eye Exam: Normal Eyes: Positive: Conjunctiva Inflamed, Discharge ENT Exam: Normal ENT: Positive: Normal ENT inspection, Hearing grossly normal, Nasal congestion, Nasal drainage, Uvula midline. Negative: Trismus, Muffled voice, Hoarse voice, Dental tenderness, Sinus tenderness Dental Exam: Normal Neck exam: Normal Neck: Positive: Supple, Nontender, No Lymphadenopathy Respiratory Exam: Normal Respiratory: Positive: Chest non-tender, Lungs clear, Normal breath sounds, No respiratory distress, No accessory muscle use Cardiovascular Exam: Normal Cardiovascular: Positive: RRR, No Murmur, Pulses Normal, Brisk Capillary Refill Musculoskeletal Exam: Normal Musculoskeletal: Positive: Strength Intact, ROM Intact, No Edema Neurological Exam: Normal Neurological: Positive: Alert, Muscle Tone Normal Psychological Exam: Normal Psychological: Positive: Normal Response To Family Skin Exam: Normal <Daniella Flowers - Last Filed: 10/05/17 14:10> Vital Signs: Initial Vital Signs Temp 97.6 F 10/05/17 13:02 Pulse 68 10/05/17 13:02 Resp 16 10/05/17 13:02 BP 124/76 10/05/17 13:02 Pulse Ox 98 10/05/17 13:02 <Faina Hu - Last Filed: 10/07/17 07:27> Eye Complaint Course/Dx - Course Course Of Treatment: zaditor eye drops, continue flonase and antihistamine, cool compress prn follow with pcp prn - Differential Dx/Diagnosis Provider Diagnoses: allergic conjuctivitis, allergic rhinnitis <Daniella Flowers - Last Filed: 10/05/17 14:10> Discharge - Sign-Out/Discharge Documenting (check all that apply): Discharge/Admit/Transfer - Billing Disposition and Condition Condition: STABLE Disposition: Home <Daniella Flowers Last Filed: 10/05/17 14:10> - Billing Disposition and Condition Condition: STABLE Disposition: Home <Faina Hu - Last Filed: 10/07/17 07:27> - Discharge Plan Condition: Stable Disposition: HOME Prescriptions: Ketotifen Fumarate [Zaditor] 0.025 % OP BID #1 lanette Patient Education Materials: Ketotifen (Into the eye), Allergic Rhinitis (ED) Referrals: Hanna Warren MD [Primary Care Provider] - If Needed Attestation Statement User Type: Provider - I was available for consult. This patient was seen by the DAYANARA. The patient was not presented to, seen by, or examined by me. -Kathleen <Faina Hu - Last Filed: 10/07/17 07:27>
== END 2017-10-05 13:48 | disposition home or self-care (01) ==
LOC: UCCORT 12:43
DX: H10.13 Acute atopic conjunctivitis, bilateral (principal); J30.9 Allergic rhinitis, unspecified; I10 Essential (primary) hypertension; F17.210 Nicotine dependence, cigarettes, uncomplicated
CPT/HCPCS: 99212; G0463

== ENCOUNTER 2018-06-14 08:25 | Emergency (ER) | payer MEDICARE, MEDICAID ==
--- OUTSIDE RECORDS SUMMARY | 2018-06-14 08:33 | XMS REPORT | Continuity of Care Document ---
:1965 External Reference #:[id number] Author Name Char Madrigal Care Team Providers Name Role Phone Hanna Warren MD Care Team Information Resident Assistant Unavailable Hanna Warren MD Primary Care Physician Unavailable Payers Date Identification Numbers Payment Provider Subscriber Policy Number: [id number] Medicare Jaylin Dixon PayID: [id number] [address] [place] [address] Policy Number: [id number] Medicaid Jaylin Dixon PayID: [id number] [address] [place] [address] Advance Directives Description No Information Available Problems Date Description Provider Status Onset: 08/03/2013 Obstructive sleep apnea syndrome Polo Baeza M.D. Active Onset: 08/03/2013 Deviated nasal septum Polo Baeza M.D. Active Onset: 08/03/2013 Chronic sinusitis Polo Baeza M.D. Active Onset: 08/03/2013 Gastroesophageal reflux disease Polo Baeza M.D. Active Family History Date Family Member(s) Observation Comments General Cancer General Asthma And Allergies General Diabetes Social History Type Date Description Comments Sex Unknown Marital Status Occupation Disabled Tobacco Use Start: Unknown current cigarette smoker Cigarette Use 15-16 per day ETOH Use Never used alcohol Recreational Drug Use Never Used Drugs Allergies, Adverse Reactions, Alerts Date Description Reaction Status Severity Comments 04/20/2013 No Known Drug Allergy Active Medications Medication Date Status Form Strength Qnty SIG Indications Ordering Provider Nexium 00/ Active Capsules DR 40mg 30cap 1 po bid Unknown 0000 s Metformin HCL 00/00/ Active Tablets 500mg 1 po bid Unknown 0000 Ramipril 00/ Active Capsules 2.5mg Unknown 0000 Ropinirole HCL 00/ Active Tablets 0.25mg 30tab one tab Unknown 0000 s daily at hs Metoprolol / Active Tablets ER 25mg Unknown Succinate ER 0000 24HR Nasonex / Active Suspension 50mcg/Act 1bott 2 squirts Unknown 0000 le each nostril qd Simvastatin / Active Tablets 80mg 1 by Unknown 0000 mouth every day Simvastatin / Active Tablets 40mg 1 by Unknown 0000 mouth every day Nicotrol / Active Inhaler 10mg one Unknown 0000 catridge every 6 hours for 30 days Stiolto Respimat / Active Aerosol 2.5-2.5mc take 2 Unknown 0000 g/Act puffs once daily. Fenofibrate / Active Tablets 145mg 1 by Unknown 0000 mouth every day Oxybutynin / Active Tablets 5mg take 1 Unknown Chloride 0000 tablet three times a day as needed for urinary urgency Venlafaxine HCL / Active Tablets 75mg daily Unknown 0000 Sumatriptan / Active Tablets 50mg 1 50 mg Unknown Succinate 0000 by mouth x with fluids, if headache does not resolve can repeat dose x 1 after 2 hours Albuterol Sulfate / Active Nebulizer (2.5mg/3M maximum Unknown 0000 L) 0.083% three times a day q8 as needed Sulfasalazine / Active Tablets 500mg Unknown 0000 Humira Pen / Active PNKT 40mg/0.8M Unknown 0000 L Trospium Chloride / Active Tablets 20mg 3 po qd Unknown 0000 Levocetirizine / Active Tablets 5mg 1 by Unknown Dihydrochloride 0000 mouth every day Aspirin / Active Tablets DR 81mg 1 by Unknown 0000 mouth every day Folic Acid / Active Tablets 1mg 1 by Unknown 0000 mouth every day Proair HFA / Active Aerosol 108(90Bas 2puffs Unknown 0000 e) four mcg/Act times a day as needed for sob Trospium Chloride 06/13/ Hx Tablets 20mg 180ta take one Aryan 2018 - bs tablet by Polo, 06/13/ mouth M.D. 2019 twice a day Azelastine HCL 10/02/ Hx Solution 137mcg/Sp 3unit 2 spays Aryan 2013 - ray s everyday Polo, 06/13/ both M.D. 2019 nostrils Prednisone 08/24/ Hx Tablets 10mg 10tab 1 po qam Aryan, 2013 - s Polo, 10/02/ M.D. 2013 Percocet 08/03/ Hx Tablets 5-325mg 12tab 2 po qid Aryan, 2013 - s prn for Polo, 08/24/ pain M.D. 2013 Zithromax 08/03/ Hx Tablets 500mg 10tab qd 10 Aryan, 2013 - s days Polo, 08/24/ M.D. 2013 Simvastatin / Hx Tablets 40mg Unknown 2018 Polyethylene / Hx 17gm bid Unknown Glycol - 2018 Vesicare / Hx Tablets 10mg Unknown 2013 Cymbalta / Hx Caps DR 60mg Unknown - Part 2018 Nabumetone / Hx Tablets 750mg Unknown 2018 Metoclopramide / Hx Tablets 10mg 15tab one tab Unknown HCL - po tid 2018 Welchol / Hx Tablets 625mg Unknown 2018 Immunizations Description No Information Available Vital Signs Date Vital Result Comment 06/13/2018 8:36am Weight 182.00 lb Height 63 inches 5'3" BMI (Body Mass Index) 32.2 kg/m2 BP Systolic 107 mmHg BP Diastolic 73 mmHg Heart Rate 67 /min O2 % BldC Oximetry 93 % Body Temperature 97.4 F Viola Score 12 Neck Circumference in inches 15.25 Pain Level 0 10/02/2013 2:05pm Weight 188.00 lb Height 64 inches 5'4" BMI (Body Mass Index) 32.3 kg/m2 BP Systolic 134 mmHg BP Diastolic 70 mmHg Heart Rate 81 /min O2 % BldC Oximetry 98 % Body Temperature 97.7 F 08/24/2013 10:07am Weight 181.00 lb Height 64 inches 5'4" BMI (Body Mass Index) 31.1 kg/m2 Body Temperature 96.1 F Pain Level 3-4 08/03/2013 8:33am Weight 190.12 lb Height 64 inches 5'4" BMI (Body Mass Index) 32.6 kg/m2 BP Systolic 124 mmHg BP Diastolic 80 mmHg Heart Rate 79 /min O2 % BldC Oximetry 98 % Body Temperature 97.1 F Pain Level 6-7 f/u scheduled. 06/02/2013 1:47pm Weight 193.00 lb Height 64 inches 5'4" BMI (Body Mass Index) 33.1 kg/m2 Body Temperature 98.6 F 04/20/2013 3:48pm Weight 193.00 lb Height 64 inches 5'4" BMI (Body Mass Index) 33.1 kg/m2 BP Systolic 112 mmHg BP Diastolic 74 mmHg Heart Rate 69 /min O2 % BldC Oximetry 96 % Body Temperature 98.1 F [id number] neck 14" Results Description No Information Available Procedures Date Code Description Status 10/02/2013 43169 Nasal Endoscopy, Diag. Completed 08/03/2013 06752 Laryngoscopy W/ Stroboscopy Completed 05/12/2013 92600 Sleep Stage 4 Or More Cpap Titra Completed 04/20/2013 66642 Fiberoptic Laryngoscopy,Diag. Completed Encounters Type Date Location Provider Dx Diagnosis Office Visit 10/02/2013 Main Office Polo Baeza M.D. 473.9 Sinusitis Chronic 2:15p Unspec 375.20 Epiphora Unspecified as To Cause 470 Deviated Nasal Septum 327.23 Obstructive Sleep Apnea Adult & Pediatric Office Visit 08/24/2013 10:30a Main Office Polo Baeza 327.23 Obstructive Sleep M.D. Apnea Adult & Pediatric 470 Deviated Nasal Septum 473.9 Sinusitis Chronic Unspec 530.81 Esophageal Reflux Office Visit 08/03/2013 8:15a Main Office Polo Baeza 327.23 Obstructive Sleep M.D. Apnea Adult & Pediatric 470 Deviated Nasal Septum 473.9 Sinusitis Chronic Unspec 530.81 Esophageal Reflux Office Visit 06/02/2013 1:45p Main Office Jeanette 327.23 Obstructive Sleep NIK Ortiz Apnea Adult & Pediatric Office Visit 04/20/2013 3:30p Main Office Polo Baeza, 470 Deviated Nasal M.D. Septum 473.9 Sinusitis Chronic Unspec 780.50 Sleep Disturbance Unspec 530.81 Esophageal Reflux 478.0 Hypertrophy Nasal Turbinates 786.09 Dyspnea & Respiratory Abnormalities Other Plan of Treatment No Information Available
[2018-06-14 08:45] VITALS: BP 107/74
--- NOTE | 2018-06-14 08:55 | UC ---
Throat Pain/Nasal Alexsander HPI - HPI Summary HPI Summary: Pt c/o nasal and chest congestion, cough, malaise, and sinus pressure and pain. - History of Current Complaint Chief Complaint: UCRespiratory Stated Complaint: COUGH, CONGESTION Time Seen by Provider: 06/14/18 08:44 Hx Obtained From: Patient Hx Last Menstrual Period: 1998 ?: No Onset/Duration: Gradual Onset, Lasting Weeks, Still Present Severity: Mild Pain Intensity: 2 Cough: Productive Associated Signs & Symptoms: Positive: Sinus Discomfort Related History: Smoking - Epiglottits Risk Factors Epiglottis Risk Factors: Negative - Allergies/Home Medications Allergies/Adverse Reactions: Allergies Allergy/AdvReac Type Severity Reaction Status Date / Time No Known Allergies Allergy Verified 06/14/18 08:37 Home Medications: Home Medications Adalimumab [Humira] 20 mg SC Q14D 06/14/18 [History Confirmed 06/14/18] Albuterol 2.5MG/3ML (0.083%)* [Ventolin 2.5 MG/3 ML NEB.ANDRÉS*] 2.5 mg INH Q4H PRN 06/14/18 [History Confirmed 06/14/18] PMH/Surg Hx/FS Hx/Imm Hx Previously Healthy: Yes Endocrine History: Dyslipidemia Cardiovascular History: Cardiac Disease Respiratory History: Asthma - Surgical History Surgical History: Yes Surgery Procedure, Year, and Place: Bilateral Orrhopedic "Problems with my bones " Feet, ~2008, [place]; Laproscopic Cholecystectomy, ~2002, [place]; Right Radius Unla and Hand Fracture Repairs x 3; Hyseterctomy, 1998, [place] - Family History Known Family History: Positive: Hypertension, Diabetes - Social History Occupation: Employed Full-time Lives: With Family Alcohol Use: None Substance Use Type: None Smoking Status (MU): Heavy Every Day Tobacco Smoker Type: Cigarettes Amount Used/How Often: ~1/2 PPD Length of Time of Smoking/Using Tobacco: Since Age 33 Have You Smoked in the Last Year: Yes Review of Systems All Other Systems Reviewed And Are Negative: Yes Constitutional: Positive: Chills, Fatigue Skin: Positive: Negative Eyes: Positive: Negative ENT: Positive: Sinus Congestion, Sinus Pain/Tenderness Respiratory: Positive: Cough Cardiovascular: Positive: Negative Gastrointestinal: Positive: Negative Genitourinary: Positive: Negative Motor: Positive: Negative Neurovascular: Positive: Negative Musculoskeletal: Positive: Negative Neurological: Positive: Headache Psychological: Positive: Negative Is Patient Immunocompromised?: No Physical Exam Triage Information Reviewed: Yes Appearance: Ill-Appearing Vital Signs: Initial Vital Signs Temp 99 F 06/14/18 08:35 Pulse 88 06/14/18 08:35 Resp 24 06/14/18 08:35 BP 107/74 06/14/18 08:35 Pulse Ox 96 06/14/18 08:35 Eye Exam: Normal ENT: Positive: Nasal congestion, Sinus tenderness Dental Exam: Normal Neck exam: Normal Respiratory Exam: Normal Respiratory: Positive: Normal breath sounds, No respiratory distress Cardiovascular Exam: Normal Musculoskeletal Exam: Normal Neurological Exam: Normal Psychological Exam: Normal Skin Exam: Normal Throat Pain/Nasal Course/Dx - Differential Dx/Diagnosis Differential Diagnosis/HQI/PQRI: Sinusitis, Tonsillitis Provider Diagnosis: Sinusitis Discharge - Sign-Out/Discharge Documenting (check all that apply): Patient Departure All imaging exams completed and their final reports reviewed: No Studies - Discharge Plan Condition: Stable Disposition: HOME Prescriptions: Amoxicillin PO (*) [Amoxicillin 875 MG (*)] 875 mg PO Q12H #20 tab Fluconazole 150 MG TAB* [Diflucan 150 MG TAB*] 150 mg PO UC ONCE #2 tablet predniSONE TAB* [Deltasone 10 MG TAB*] 30 mg PO DAILY #12 tab Patient Education Materials: Sinusitis (ED) Referrals: Hanna Warren MD [Primary Care Provider] - If Needed - Billing Disposition and Condition Condition: STABLE Disposition: Home
== END 2018-06-14 09:06 | disposition home or self-care (01) ==
LOC: UCCORT 08:25
DX: J32.9 Chronic sinusitis, unspecified (principal); J45.909 Unspecified asthma, uncomplicated; R09.89 Other specified symptoms and signs involving the circulatory and respiratory systems; F17.210 Nicotine dependence, cigarettes, uncomplicated
CPT/HCPCS: 99212; G0463